=== PATIENT | male | born 1930 | race Caucasian/White ===

== ENCOUNTER 2016-08-12 19:06 | Inpatient (IN) | payer MEDICARE, BC ==
[2016-08-12 20:06] LABS: ALANINE AMINOTRANSFERASE 28 U/L (21-72); ALKALINE PHOSPHATASE 179 U/L (38-126); ANION GAP 14 (5-19); ASPARTATE AMINO TRANSFERASE 21 U/L (17-59); BILIRUBIN,TOTAL 0.8 mg/dL (0.2-1.3); BLOOD UREA NITROGEN 29 mg/dL (7-20); CALCIUM 9.9 mg/dL (8.4-10.2); CARBON DIOXIDE 21 mmol/L (22-30); CHLORIDE 104 mmol/L (98-107); CREATININE RESULT 1.66 mg/dL (0.52-1.25); GLUCOSE 148 mg/dL (75-110); POTASSIUM 5.1 mmol/L (3.6-5.0); SODIUM 139.2 mmol/L (137-145); TOTAL PROTEIN 7.6 g/dL (6.3-8.2)
[2016-08-12 20:29] LABS: HEMATOCRIT 47.2 % (37.9-51.0); HEMOGLOBIN 15.3 g/dL (13.5-17.0); HGB HCT DIFFERENCE -1.3; MEAN CORPUSCULAR HEMOGLOBIN 28.2 pg (27.0-33.4); MEAN CORPUSCULAR HGB CONC 32.4 g/dL (32.0-36.0); MEAN CORPUSCULAR VOLUME 87 fl (80-97); RED BLOOD COUNT 5.42 10^6/uL (4.35-5.55); RED CELL DISTRIBUTION WIDTH 15.4 % (11.5-14.0); WHITE BLOOD COUNT 16.9 10^3/uL (4.0-10.5)
[2016-08-12 20:44] LABS: BAND NEUTROPHILS % (MANUAL) 6 % (3-5); BASOPHILS % (MANUAL) 0 % (0-2); EOSINOPHILS % (MANUAL) 1 % (0-6); LYMPHOCYTES % (MANUAL) 2 % (13-45); TOTAL CELLS COUNTED 100
[2016-08-12 20:45] LABS: ANISOCYTOSIS SLIGHT; OVALOCYTES SLIGHT; POIKILOCYTOSIS SLIGHT
[2016-08-12] MEDS ORDERED: NORMAL SALINE 1000 ML 500 ML IV ONE (22:23)
--- NOTE | 2016-08-12 22:28 | ER Document Report ---
ED General - General Chief Complaint: Nausea/Vomiting/Diarrhea Stated Complaint: VOMITING Mode of Arrival: Medic Information source: Relative Cannot obtain history due to: Dementia Notes: This is an 86-year-old male with a history of end-stage Alzheimer's dementia who is cared for by his son at home. Patient presents with multiple episodes of nausea vomiting and diarrhea since about noon today. Patient has been unable to tolerate by mouth. No fevers noted. No known sick contacts and no recent travel. TRAVEL OUTSIDE OF THE [place] IN LAST 30 DAYS: No - Related Data Allergies/Adverse Reactions: No Known Allergies Allergy (Verified 06/21/15 17:41) Past Medical History - General Information source: Relative Cannot obtain history due to: Dementia - Social History Smoking Status: Never Smoker Family History: Reviewed & Not Pertinent - Past Medical History Cardiac Medical History: Reports: Hx Hypercholesterolemia, Hx Hypertension Endocrine Medical History: Reports: Hx Hypothyroidism Musculoskeltal Medical History: Reports Hx Arthritis Psychiatric Medical History: Reports: Hx Dementia - Alzheimer's Past Surgical History: Reports: Hx Orthopedic Surgery - Shoulder - Immunizations Hx Diphtheria, Pertussis, Tetanus Vaccination: No Hx Pneumococcal Vaccination: 09/09/12 Physical Exam - Vital signs Vitals: Resp 15 08/12/16 19:30 Temperature 98.3, pulse 93, respiration 16, blood pressure 104/74 - Notes Notes: PHYSICAL EXAMINATION: GENERAL: Frail elderly male. He is alert to person. He speaks very softly but has no complaints at this time. He is somewhat ill-appearing, but no acute distress HEAD: Atraumatic, normocephalic. EYES: Pupils equal round and reactive to light, extraocular movements intact, sclera anicteric, conjunctiva are normal. ENT: nares patent, oropharynx clear without exudates. mucous membranes tachy NECK: Normal range of motion, supple without lymphadenopathy LUNGS: Breath sounds clear to auscultation bilaterally and equal anteriorly. No wheezes rales or rhonchi. HEART: Regular rate and rhythm without murmurs ABDOMEN: Soft, nontender, normoactive bowel sounds. No guarding, no rebound. No masses appreciated. EXTREMITIES: No edema NEUROLOGICAL: Baseline dementia. Alert to person. no gross focal motor or sensory deficits Course - Vital Signs Vital signs: Temp Pulse Resp BP Pulse Ox 98.3 F 87 15 100/65 96 08/12/16 20:03 08/12/16 20:03 08/13/16 00:01 08/13/16 00:00 08/12/16 23:01 - Laboratory Result Diagrams: 08/12/16 20:17 08/12/16 19:41 Laboratory results interpreted by me: 08/12/16 08/12/16 08/12/16 19:41 20:17 23:00 WBC 16.9 H RDW 15.4 H Seg Neuts % (Manual) 87 H Band Neutrophils % 6 H Lymphocytes % (Manual) 2 L Monocytes % (Manual) 2 L Abs Neuts (Manual) 15.7 H Potassium 5.1 H Carbon Dioxide 21 L BUN 29 H Creatinine 1.66 H Est GFR ( Amer) 48 L Est GFR (Non-Af Amer) 39 L Glucose 148 H Alkaline Phosphatase 179 H Ur Leukocyte Esterase TRACE H Urine Ascorbic Acid 40 H Discharge - Discharge Clinical Impression: Nausea, vomiting, and diarrhea Leukocytosis Qualifiers: Leukocytosis type: unspecified Qualified Code(s): D72.829 - Elevated white blood cell count, unspecified Disposition: ADMITTED INPATIENT Admitting Provider: [facility] Unit Admitted: Medical Floor
[2016-08-12 23:50] LABS: APPEARANCE,URINE SLIGHTLY-CLOUDY; BILIRUBIN,URINE NEGATIVE (NEGATIVE); GLUCOSE, URINE NEGATIVE (NEGATIVE); KETONES,URINE NEGATIVE (NEGATIVE); LEUKOCYTE ESTERASE,URINE TRACE (NEGATIVE); NITRITE,URINE NEGATIVE (NEGATIVE); PROTEIN,URINE NEGATIVE (NEGATIVE); URINE SPECIFIC GRAVITY 1.012; UROBILINOGEN,URINE NEGATIVE mg/dL (<2.0)
[2016-08-13] MEDS ORDERED: CIPROFLOXACIN 400 MG/D5W RTU 200 ML IV ONE (00:32)
[2016-08-13] MEDS ORDERED: METRONIDAZOLE 500 MG/NS RTU 100 ML IV ONE (00:33)
[2016-08-13] MEDS ORDERED: NORMAL SALINE 1000 ML 500 ML IV ONE (01:16)
[2016-08-13] MEDS: NORMAL SALINE 1000 ML 1,000 ML IV PRN (06:28)
[2016-08-13] MEDS: METRONIDAZOLE 500 MG/NS RTU 100 ML IV SCH ×3 (08:43→20:40)
[2016-08-13] MEDS: CIPROFLOXACIN 200 MG/D5W RTU 100 ML IV SCH ×2 (10:00→21:44)
--- NOTE | 2016-08-13 12:44 | PDOC H&P ---
History of Present Illness Admission Date/PCP: 08/13/16 05:48 Patient complains of: Nausea, Vomiting, and Diarrhea History of Present Illness: MELYSSA KAISER JR is a 86 year old male brought to the ED by medic with cc about nausea, vomiting and diarrhea reported by son due to patient profound dementia. Family reported associated poor po intake. No noted fever or chills.. No reported difficulty with breathing or observed chest pain. No voiding issue with regard to urination. No person with similar symptoms at home or recent exposure or travel. Past Medical History Cardiac Medical History: Reports: Hyperlipidema, Hypertension Endocrine Medical History: Reports: Hypothyroidism Musculoskeltal Medical History: Reports: Arthritis Psychiatric Medical History: Reports: Dementia - Alzheimer's Past Surgical History Past Surgical History: Reports: Orthopedic Surgery - Shoulder Social History Smoking Status: Unknown if Ever Smoked Frequency of Alcohol Use: None Hx Recreational Drug Use: No Hx Prescription Drug Abuse: No - Advance Directive Resuscitation Status: Full Code Family History Family History: Reviewed & Not Pertinent Parental Family History Reviewed: Yes Children Family History Reviewed: Yes Sibling(s) Family History Reviewed.: Yes Medication/Allergy Home Medications: Ascorbic Acid [Vitamin C 500 mg Tablet] 500 mg PO DAILY 08/13/16 Aspirin [Aspirin 81 mg Chewable Tablet] 81 mg PO DAILY 08/13/16 Cyanocobalamin (Vitamin B-12) [Vitamin B-12 1000 mcg Tablet] 1,000 mg PO DAILY 08/13/16 Diclofenac Sodium [Voltaren] 2 gm TOP QID 08/13/16 Ferrous Sulfate [Feosol 325 mg Tablet] 325 mg PO DAILY 08/13/16 Levothyroxine Sodium [Synthroid 0.075 mg Tablet] 0.075 mg PO DAILY 08/13/16 Memantine HCl [Namenda Xr] 28 mg PO DAILY 08/13/16 Mupirocin 1 applic TOP TID 08/13/16 Polyethylene Glycol 3350 [Miralax Powder 17 gm/Packet] 17 gm PO DAILY 08/13/16 Pravastatin Sodium [Pravachol] 20 mg PO QHS 08/13/16 Rivastigmine Tartrate [Rivastigmine] 4.5 mg PO BID 08/13/16 Tamsulosin HCl [Flomax 0.4 mg Cap.sr] 0.4 mg PO DAILY 08/13/16 Allergies/Adverse Reactions: No Known Allergies Allergy (Verified 12/30/15 17:41) Review of Systems ROS unobtainable: Due to mental status All systems: reviewed and no additional remarkable complaints except as stated Physical Exam Vital Signs: Temp Pulse Resp BP Pulse Ox 98.2 F 78 20 116/71 99 08/13/16 08:19 08/13/16 08:19 08/13/16 08:19 08/13/16 08:19 08/13/16 08:19 Intake & Output 08/12/16 08/13/16 08/14/16 06:59 06:59 06:59 Intake Total 0 Output Total 0 Balance 0 General appearance: PRESENT: no acute distress, cooperative Head exam: PRESENT: atraumatic, normocephalic Eye exam: PRESENT: conjunctiva pink, EOMI, PERRLA. ABSENT: scleral icterus Ear exam: PRESENT: normal external ear exam Neck exam: PRESENT: full ROM. ABSENT: carotid bruit, JVD, lymphadenopathy, thyromegaly Respiratory exam: PRESENT: accessory muscle use, chest wall tenderness, clear to auscultation scar, crackles, decreased breath sounds, prolonged expiratory phas, rales, retraction, rhonchi, stridor, symmetrical, tachypnea, unlabored, wheezes, other Cardiovascular exam: PRESENT: RRR. ABSENT: diastolic murmur, rubs, systolic murmur Extremities exam: PRESENT: full ROM Musculoskeletal exam: PRESENT: deformity - due to joint involvement by arthritis Neurological exam: PRESENT: altered - due to dementia Psychiatric exam: PRESENT: appropriate affect, normal mood. ABSENT: homicidal ideation, suicidal ideation Skin exam: PRESENT: erythema - around left heel region, rash - resolving ecchymotic lesion on upper extremities, warm Results Laboratory Results: see [employer] for information. These were reviewed and form part of my clinical decision making. Impressions: Abdomen/Pelvis CT 08/12/16 22:26 IMPRESSION: 1. GALLSTONES. 2. PROMINENT STOOL IN THE RECTOSIGMOID. POSSIBLE FECAL IMPACTION. 3. NO OTHER SIGNIFICANT OR ACUTE PROCESS IN THE ABDOMEN OR PELVIS. Assessment & Plan - Diagnosis (1) Senile dementia of Alzheimer's type Is this a current diagnosis for this admission?: YesPlan: See admitting physician order. (2) Fecal impaction in rectum Is this a current diagnosis for this admission?: YesPlan: See admitting physician order. (3) Nausea, vomiting, and diarrhea Is this a current diagnosis for this admission?: YesPlan: See admitting physician order. (4) Hypothyroid Qualifiers: Hypothyroidism type: acquired Qualified Code(s): E03.9 - Hypothyroidism, unspecified Is this a current diagnosis for this admission?: YesPlan: See admitting physician order. (5) Cholelithiasis Qualifiers: Cholelithiasis location: gallbladder Cholecystitis acuity: chronic Biliary obstruction: without biliary obstruction Is this a current diagnosis for this admission?: YesPlan: See admitting physician order. (6) HLD (hyperlipidemia) Is this a current diagnosis for this admission?: YesPlan: See admitting physician order. - Time Time Spent: 50 to 70 Minutes Medications reviewed and adjusted accordingly: Yes Anticipated discharge: Home with Homehealth - Inpatient Certification Medical Necessity: Need For IV Fluids, Need for IV Antibiotics, Risk of Complication if Not Cared For in Hospital Post Hospital Care: D/C [employer] Documentation - Plan Summary Plan Summary: See admitting physician order.
[2016-08-13] MEDS: MUPIROCIN 2% OINTMENT 22 GM TOP SCH ×2 (14:06→17:13)
[2016-08-13] MEDS: RIVASTIGMINE TARTRATE 1.5 MG CAPSULE PO SCH (17:13)
[2016-08-13] MEDS ORDERED: RIVASTIGMINE TARTRATE 4.5 MG PO SCH (18:00)
[2016-08-13] MEDS: ATORVASTATIN CALCIUM 10 MG TABLET PO SCH (21:44)
[2016-08-14] MEDS: METRONIDAZOLE 500 MG/NS RTU 100 ML IV SCH ×4 (03:52→22:34)
--- NOTE | 2016-08-14 08:12 | PDOC PROGRESS REPORT ---
Subjective Progress Note for:: 08/14/16 Subjective:: At baseline advance dementia not able to meaningfully contribute to his medical care. Nursing staff denied any observed difficulty with breathing. No reported fever or chills. Remain on soft diet with nectar thicken fluid. Remain on Metronidazole and Ciprofloxacin coverage. Physical Exam Vital Signs: Temp Pulse Resp BP Pulse Ox 98.4 F 76 18 129/71 H 100 08/13/16 23:59 08/13/16 23:59 08/13/16 23:59 08/13/16 23:59 08/13/16 23:59 Intake & Output 08/13/16 08/14/16 08/15/16 06:59 06:59 06:59 Intake Total 0 2675 Output Total 0 Balance 0 2675 General appearance: PRESENT: no acute distress, cooperative Head exam: PRESENT: atraumatic, normocephalic Eye exam: PRESENT: conjunctiva pink, EOMI, PERRLA. ABSENT: scleral icterus Neck exam: PRESENT: full ROM. ABSENT: carotid bruit, JVD, lymphadenopathy, thyromegaly Respiratory exam: ABSENT: accessory muscle use, chest wall tenderness, clear to auscultation scar, crackles, decreased breath sounds, prolonged expiratory phas, rales, retraction, rhonchi, stridor, symmetrical, tachypnea, unlabored, wheezes , other Cardiovascular exam: PRESENT: RRR. ABSENT: diastolic murmur, rubs, systolic murmur GI/Abdominal exam: ABSENT: ascites, diminished bowel sounds, distended, firm, guarding, hernia, hyperactive bowel sounds, hypoactive bowel sounds, mass, Charles's sign, normal bowel sounds, organolmegaly, rebound, rigid, soft, tenderness, other Extremities exam: PRESENT: full ROM Musculoskeletal exam: PRESENT: deformity - due to joint involvement with arthritis Neurological exam: PRESENT: altered - due to dementia Skin exam: PRESENT: dry, intact, warm. ABSENT: cyanosis, rash Results Laboratory Results: Pending for this morning. See [employer] for more information. Impressions: Abdomen/Pelvis CT 08/12/16 22:26 IMPRESSION: 1. GALLSTONES. 2. PROMINENT STOOL IN THE RECTOSIGMOID. POSSIBLE FECAL IMPACTION. 3. NO OTHER SIGNIFICANT OR ACUTE PROCESS IN THE ABDOMEN OR PELVIS. Assessment & Plan - Diagnosis (1) Senile dementia of Alzheimer's type Is this a current diagnosis for this admission?: YesPlan: See attending physician order. (2) Fecal impaction in rectum Is this a current diagnosis for this admission?: YesPlan: See attending physician order. (3) Nausea, vomiting, and diarrhea Is this a current diagnosis for this admission?: YesPlan: See attending physician orders. (4) Hypothyroid Qualifiers: Hypothyroidism type: acquired Qualified Code(s): E03.9 - Hypothyroidism, unspecified Is this a current diagnosis for this admission?: YesPlan: See attending physician order. (5) Cholelithiasis Qualifiers: Cholelithiasis location: gallbladder Cholecystitis acuity: chronic Biliary obstruction: without biliary obstruction Is this a current diagnosis for this admission?: YesPlan: See attending physician order. (6) HLD (hyperlipidemia) Is this a current diagnosis for this admission?: YesPlan: See attending physician order. - Time Time Spent with patient: 25-34 minutes Medications reviewed and adjusted accordingly: Yes Anticipated discharge: Home with Homehealth - Inpatient Certification Medical Necessity: Need For IV Fluids, Need for IV Antibiotics, Risk of Complication if Not Cared For in Hospital Post Hospital Care: D/C [employer] Documentation - Plan Summary Plan Summary: See attending physician orders.
[2016-08-14] MEDS: CIPROFLOXACIN 200 MG/D5W RTU 100 ML IV SCH ×2 (09:47→22:34)
[2016-08-14] MEDS: ASPIRIN 81 MG TABLET, CHEWABLE PO SCH (09:47)
[2016-08-14] MEDS: TAMSULOSIN HCL 0.4 MG CAP.SR.24H PO SCH (09:48)
[2016-08-14] MEDS: POLYETHYLENE GLYCOL 3350 POWDER 17 GM/1 PACKET PO SCH (09:48)
[2016-08-14] MEDS: RIVASTIGMINE TARTRATE 1.5 MG CAPSULE PO SCH ×2 (09:48→18:23)
[2016-08-14] MEDS: MUPIROCIN 2% OINTMENT 22 GM TOP SCH ×3 (09:48→18:24)
[2016-08-14] MEDS: CYANOCOBALAMIN (VITAMIN B-12) 1,000 MCG TABLET PO SCH (09:49)
[2016-08-14] MEDS ORDERED: (PENDING PHARMACY ID) (Memantine Hcl [Namenda Xr] 28 MG) PO SCH (10:00)
[2016-08-14] MEDS ORDERED: CYANOCOBALAMIN (VITAMIN B-12) 1,000 MCG TABLET PO SCH (10:00)
[2016-08-14 10:58] LABS: ABSOLUTE EOSINOPHILS # (AUTO) 0.1 10^3/uL (0.0-0.6); ABSOLUTE LYMPHOCYTES (AUTO) 1.4 10^3/uL (0.5-4.7); ABSOLUTE MONOCYTES (AUTO) 1.2 10^3/uL (0.1-1.4); BASOPHILS % (AUTO) 0.4 % (0-2); EOSINOPHILS % (AUTO) 1.3 % (0-6); HEMATOCRIT 34.2 % (37.9-51.0); MEAN CORPUSCULAR HEMOGLOBIN 28.5 pg (27.0-33.4); MEAN CORPUSCULAR HGB CONC 33.3 g/dL (32.0-36.0); MEAN CORPUSCULAR VOLUME 86 fl (80-97); RED CELL DISTRIBUTION WIDTH 15.4 % (11.5-14.0); SEGMENTED NEUTROPHILS % (AUTO) 72.3 % (42-78); WHITE BLOOD COUNT 9.6 10^3/uL (4.0-10.5)
[2016-08-14 11:05] LABS: HEMOGLOBIN 11.4 g/dL (13.5-17.0)
[2016-08-14] MEDS: NORMAL SALINE 1000 ML 1,000 ML IV PRN (11:09)
[2016-08-14 11:14] LABS: ANION GAP 10 (5-19); BLOOD UREA NITROGEN 52 mg/dL (7-20); CALCIUM 8.9 mg/dL (8.4-10.2); CARBON DIOXIDE 20 mmol/L (22-30); CHLORIDE 111 mmol/L (98-107); CREATININE RESULT 1.65 mg/dL (0.52-1.25); GLUCOSE 108 mg/dL (75-110); POTASSIUM 4.3 mmol/L (3.6-5.0); SODIUM 140.9 mmol/L (137-145)
--- NOTE | 2016-08-14 13:07 | ST Inp Modified Barium Swallow ---
Medical Diagnosis - Medical Diagnoses Medical Diagnosis Description & ICD-10 Code(s): dysphagia ST Inpatient [facility] [place] - General Date: 08/14/16 - per EMR; pt significant for; nausea, vomiting, diarrhea, leukocytosis. Abdonimal/pelvis CT shows gallstones, prominent stool possible fecal impaction. Pt currently NPO for concerns for swallowing. PMHx: end stage dementia-alzheimers, cared for by pts son, hypercholesterolemia, HTN, hypothyroidism, arthritis. - History History Obtained From: Other Medications: Medications Reviewed - Subjective Current Nutritional Means: NPO Current PO Diet: N/A (NPO) Current Symptoms: Coughing Pain: denies pain - Objective Assessment: Left Lateral - Food Trials Food Trials Used: Thin liquids, Honey-thickened liquids, Pureed, Soft solids The Patient: fed by caregiver, via cup, via spoon - Assessment Labial Function: Within Normal Limits Dentition: Edentulous Laryngeal Function: Volitional Swallow, no volitional cough/clear - Pharyngeal Stage Initiation of Pharyngeal Stage: Delayed Reflex Delay Time (seconds): 4 Reduced Tongue Base Retraction: Yes Pre-Swallowing Pooling in Valleculae: Moderate Multiple Swallows With: Cleared w/ Liquid Assist Post Swallow Residuals in Valleculae: Moderate Post Swallow Residuals in Pyriforms: None Pahryngeal Stage Comments: Patient demonstrated consistently delayed swallow reflex (4 seconds). For thin liquid trial, the patient demonstrated aspiration of small sip, immediate cough reflex noted. For honey thick liquids, the patient demonstrated safe swallow with valleculae residue, cleared with second swallow. For puree trial, pooling in valleculae seen prior to swallow, and residue seen post swallow. Sip of thickened liquid reduced residue in valleculae. Attempted soft solids (peaches), pt unable to swallow, therapist removed from oral cavity with spoon. Some floor of mouth residue also seen post swallow on puree texture. - Impression/Summary Tracheal Aspiration: yes, cough, after swallow Productive Cough: No Effective Clearing: no Compensatory Strategies: Unable to follow directions for strategies. Patient Presents With: Oral-Pharyngeal dysph. Risk of Aspiration: Moderate Risk of Nutritional Compromise: Moderate Risk Due To: aspiration of thin liquid, inability to handle solids other than puree - Recommendations Solid Diet Recommendations: Pureed Liquid Diet Recommendations: [place]-Thick - May change to honey thick should coughing be noted on nectar liquids. Strict Aspitarion Precautions: Yes Dysphagia Therapy with ORIENTATION AND MOBILITY INSTRUCTOR: Follow Up PRN Recommended Techniques: Check Mouth for Pocketing, Alternate Bites/Sips Supervision: Constant - Time Total Time: 30 Total Timed Minutes: 30
[2016-08-14] MEDS: ATORVASTATIN CALCIUM 10 MG TABLET PO SCH (22:34)
[2016-08-15] MEDS: METRONIDAZOLE 500 MG/NS RTU 100 ML IV SCH ×4 (03:56→21:40)
--- NOTE | 2016-08-15 08:26 | PDOC PROGRESS REPORT ---
Subjective Progress Note for:: 08/15/16 Subjective:: No observed chest pain or difficulty with breathing. No reported fever or chills. Remain on puree diet with nectar thicken fluid as per ST recommendation following swallowing evaluation. Remain on IV Metronidazole and Ciprofloxacin coverage. Blood culture is growing gram positive cocci, organism identification and sensitivity pending. Physical Exam Vital Signs: Temp Pulse Resp BP Pulse Ox 98.5 F 65 17 134/60 H 100 08/14/16 23:16 08/14/16 23:16 08/14/16 23:16 08/14/16 23:16 08/14/16 23:16 Intake & Output 08/14/16 08/15/16 08/16/16 06:59 06:59 06:59 Intake Total 2675 1637 Output Total 3 Balance 2675 1634 Weight 92.4 kg Physical Exam: General appearance: PRESENT: no acute distress, cooperative Head exam: PRESENT: atraumatic, normocephalic Eye exam: PRESENT: conjunctiva pink, EOMI, PERRLA. ABSENT: scleral icterus Neck exam: PRESENT: full ROM. ABSENT: carotid bruit, JVD, lymphadenopathy, thyromegaly Respiratory exam: ABSENT: accessory muscle use, chest wall tenderness, clear to auscultation scar, crackles, decreased breath sounds, prolonged expiratory phase , rales, retraction, rhonchi, stridor, symmetrical, tachypnea, unlabored, wheezes, other Cardiovascular exam: PRESENT: RRR. ABSENT: diastolic murmur, rubs, systolic murmur GI/Abdominal exam: ABSENT: ascites, diminished bowel sounds, distended, firm, guarding, hernia, hyperactive bowel sounds, hypoactive bowel sounds, mass, Charles's sign, normal bowel sounds, organolmegaly, rebound, rigid, soft, tenderness, other Extremities exam: PRESENT: full ROM Musculoskeletal exam: PRESENT: deformity - due to joint involvement with arthritis Neurological exam: PRESENT: altered - due to dementia Skin exam: PRESENT: dry, intact, warm. ABSENT: cyanosis, rash Results Laboratory Results: 08/14/16 09:34 08/14/16 09:34 08/14/16 08/14/16 09:34 09:34 WBC 9.6 RBC 4.00 L Hgb 11.4 L D Hct 34.2 L MCV 86 MCH 28.5 MCHC 33.3 RDW 15.4 H Plt Count 299 Seg Neutrophils % 72.3 Lymphocytes % 14.0 Monocytes % 12.0 Eosinophils % 1.3 Basophils % 0.4 Absolute Neutrophils 7.0 Absolute Lymphocytes 1.4 Absolute Monocytes 1.2 Absolute Eosinophils 0.1 Absolute Basophils 0.0 Sodium 140.9 Potassium 4.3 Chloride 111 H Carbon Dioxide 20 L Anion Gap 10 BUN 52 H Creatinine 1.65 H Est GFR ( Amer) 48 L Est GFR (Non-Af Amer) 40 L Glucose 108 Calcium 8.9 08/13/16 15:42 Nasophary (Mrsa Only) MRSA Surveillance Culture - Final NO MRSA RECOVERED Impressions: Abdomen/Pelvis CT 08/12/16 22:26 IMPRESSION: 1. GALLSTONES. 2. PROMINENT STOOL IN THE RECTOSIGMOID. POSSIBLE FECAL IMPACTION. 3. NO OTHER SIGNIFICANT OR ACUTE PROCESS IN THE ABDOMEN OR PELVIS. Assessment & Plan - Diagnosis (1) Senile dementia of Alzheimer's type Is this a current diagnosis for this admission?: YesPlan: See attending physician order. (2) Fecal impaction in rectum Is this a current diagnosis for this admission?: YesPlan: See attending physician order. (3) Nausea, vomiting, and diarrhea Is this a current diagnosis for this admission?: YesPlan: See attending physician orders. (4) Hypothyroid Qualifiers: Hypothyroidism type: acquired Qualified Code(s): E03.9 - Hypothyroidism, unspecified Is this a current diagnosis for this admission?: YesPlan: See attending physician order. (5) Cholelithiasis Qualifiers: Cholelithiasis location: gallbladder Cholecystitis acuity: chronic Biliary obstruction: without biliary obstruction Is this a current diagnosis for this admission?: YesPlan: See attending physician order. (6) HLD (hyperlipidemia) Is this a current diagnosis for this admission?: YesPlan: See attending physician order. - Time Time Spent with patient: 25-34 minutes Medications reviewed and adjusted accordingly: Yes Anticipated discharge: Home with Homehealth - Inpatient Certification Medical Necessity: Need For IV Fluids, Need for IV Antibiotics, Risk of Complication if Not Cared For in Hospital Post Hospital Care: D/C [employer] Documentation - Plan Summary Plan Summary: see attending physician orders
[2016-08-15] MEDS: CYANOCOBALAMIN (VITAMIN B-12) 1,000 MCG TABLET PO SCH (09:13)
[2016-08-15] MEDS: RIVASTIGMINE TARTRATE 1.5 MG CAPSULE PO SCH ×2 (09:13→17:08)
[2016-08-15] MEDS: TAMSULOSIN HCL 0.4 MG CAP.SR.24H PO SCH (09:13)
[2016-08-15] MEDS: ASPIRIN 81 MG TABLET, CHEWABLE PO SCH (09:13)
[2016-08-15] MEDS: POLYETHYLENE GLYCOL 3350 POWDER 17 GM/1 PACKET PO SCH (09:13)
[2016-08-15] MEDS: CIPROFLOXACIN 200 MG/D5W RTU 100 ML IV SCH ×2 (09:13→21:40)
[2016-08-15] MEDS: MUPIROCIN 2% OINTMENT 22 GM TOP SCH ×3 (09:14→17:08)
[2016-08-15] MEDS: ATORVASTATIN CALCIUM 10 MG TABLET PO SCH (21:40)
[2016-08-16] MEDS: METRONIDAZOLE 500 MG/NS RTU 100 ML IV SCH ×2 (03:30→08:25)
[2016-08-16] MEDS: CIPROFLOXACIN 200 MG/D5W RTU 100 ML IV SCH (10:43)
[2016-08-16] MEDS: CYANOCOBALAMIN (VITAMIN B-12) 1,000 MCG TABLET PO SCH (10:47)
[2016-08-16] MEDS: RIVASTIGMINE TARTRATE 1.5 MG CAPSULE PO SCH ×2 (10:47→18:16)
[2016-08-16] MEDS: ASPIRIN 81 MG TABLET, CHEWABLE PO SCH (10:48)
[2016-08-16] MEDS: TAMSULOSIN HCL 0.4 MG CAP.SR.24H PO SCH (10:48)
[2016-08-16] MEDS: POLYETHYLENE GLYCOL 3350 POWDER 17 GM/1 PACKET PO SCH (10:48)
[2016-08-16] MEDS: MUPIROCIN 2% OINTMENT 22 GM TOP SCH ×3 (10:49→18:15)
--- NOTE | 2016-08-16 14:28 | PDOC PROGRESS REPORT ---
Subjective Progress Note for:: 08/16/16 Subjective:: No observed chest pain or difficulty with breathing. No reported fever or chills. No reported nausea or vomiting. Tolerating puree diet with nectar thicken fluid. His blood culture did revealed Enterococus faecalis. Remain on IV Metronidazole and Ciprofloxacin coverage. Physical Exam Vital Signs: Temp Pulse Resp BP Pulse Ox 98.1 F 77 22 H 142/79 H 98 08/16/16 11:42 08/16/16 11:42 08/16/16 11:42 08/16/16 11:42 08/16/16 11:42 Intake & Output 08/15/16 08/16/16 08/17/16 06:59 06:59 06:59 Intake Total 1637 1428 Output Total 3 Balance 1634 1428 Weight 92.4 kg 93.8 kg Physical Exam: General appearance: PRESENT: no acute distress, cooperative Head exam: PRESENT: atraumatic, normocephalic Eye exam: PRESENT: conjunctiva pink, EOMI, PERRLA. ABSENT: scleral icterus Neck exam: PRESENT: full ROM. ABSENT: carotid bruit, JVD, lymphadenopathy, thyromegaly Respiratory exam: ABSENT: accessory muscle use, chest wall tenderness, clear to auscultation scar, crackles, decreased breath sounds, prolonged expiratory phase , rales, retraction, rhonchi, stridor, symmetrical, tachypnea, unlabored, wheezes, other Cardiovascular exam: PRESENT: RRR. ABSENT: diastolic murmur, rubs, systolic murmur GI/Abdominal exam: ABSENT: ascites, diminished bowel sounds, distended, firm, guarding, hernia, hyperactive bowel sounds, hypoactive bowel sounds, mass, Charles's sign, normal bowel sounds, organolmegaly, rebound, rigid, soft, tenderness, other Extremities exam: PRESENT: full ROM Musculoskeletal exam: PRESENT: deformity - due to joint involvement with arthritis Neurological exam: PRESENT: altered - due to dementia Skin exam: PRESENT: dry, intact, warm. ABSENT: cyanosis, rash Results Laboratory Results: 08/14/16 09:34 08/14/16 09:34 Impressions: Abdomen/Pelvis CT 08/12/16 22:26 IMPRESSION: 1. GALLSTONES. 2. PROMINENT STOOL IN THE RECTOSIGMOID. POSSIBLE FECAL IMPACTION. 3. NO OTHER SIGNIFICANT OR ACUTE PROCESS IN THE ABDOMEN OR PELVIS. Assessment & Plan - Diagnosis (1) Senile dementia of Alzheimer's type Is this a current diagnosis for this admission?: YesPlan: See attending physician order. (2) Fecal impaction in rectum Is this a current diagnosis for this admission?: YesPlan: See attending physician order. (3) Nausea, vomiting, and diarrhea Is this a current diagnosis for this admission?: YesPlan: Resolved. See attending physician orders. (4) Hypothyroid Qualifiers: Hypothyroidism type: acquired Qualified Code(s): E03.9 - Hypothyroidism, unspecified Is this a current diagnosis for this admission?: YesPlan: See attending physician order. (5) Cholelithiasis Qualifiers: Cholelithiasis location: gallbladder Cholecystitis acuity: chronic Biliary obstruction: without biliary obstruction Is this a current diagnosis for this admission?: YesPlan: See attending physician order. (6) HLD (hyperlipidemia) Is this a current diagnosis for this admission?: YesPlan: See attending physician order. (7) Enterococcus faecalis infection Is this a current diagnosis for this admission?: YesPlan: D/C IV Ciprofloxacin and Metronidazole. Start on IV Unasyn 1.5gm [id number] coverage. Obtain CBC with diff in AM. - Time Time Spent with patient: 25-34 minutes Medications reviewed and adjusted accordingly: Yes Anticipated discharge: Home with Homehealth - Inpatient Certification Medical Necessity: Need Close Monitoring Due to Risk of Patient Decompensation, Need For IV Fluids, Need for IV Antibiotics, Risk of Complication if Not Cared For in Hospital Post Hospital Care: D/C [employer]ner Documentation - Plan Summary Plan Summary: See attending physician orders.
[2016-08-16] MEDS: AMPICILLIN SODIUM/SULBACTAM NA 1.5 GM in NORMAL SALINE 50 ML IV SCH (18:15)
[2016-08-16] MEDS: ATORVASTATIN CALCIUM 10 MG TABLET PO SCH (22:31)
[2016-08-16] MEDS: NORMAL SALINE 1000 ML 1,000 ML IV PRN (22:31)
[2016-08-17] MEDS: AMPICILLIN SODIUM/SULBACTAM NA 1.5 GM in NORMAL SALINE 50 ML IV SCH ×4 (00:08→19:06)
--- NOTE | 2016-08-17 10:04 | PDOC PROGRESS REPORT ---
Subjective Progress Note for:: 08/17/16 Subjective:: Patient is doing fair patient is a bit sleepy during the day times. No fever no nausea no vomiting in the by mouth intake is fair. Patient CT abdomen and pelvis reveal assistance for some gallstone but no any acute cholecystitis. His cussed with the family in the room Physical Exam Vital Signs: Temp Pulse Resp BP Pulse Ox 98.2 F 68 22 H 121/50 L 98 08/17/16 08:00 08/17/16 08:00 08/17/16 08:00 08/17/16 08:00 08/17/16 08:00 Intake & Output 08/16/16 08/17/16 08/18/16 06:59 06:59 06:59 Intake Total 1428 1560 Balance 1428 1560 Weight 93.8 kg Physical Exam: She is currently lying in the bed sleeping but no any acute distress General appearance: PRESENT: no acute distress, other Head exam: PRESENT: normocephalic Eye exam: PRESENT: PERRLA Respiratory exam: PRESENT: clear to auscultation scar Cardiovascular exam: PRESENT: +S1, +S2 GI/Abdominal exam: PRESENT: normal bowel sounds, soft. ABSENT: tenderness Extremities exam: PRESENT: pedal edema Neurological exam: PRESENT: altered, other Additional comments: Patient is currently sleepy but present significant underlying dementia Results Laboratory Results: 08/14/16 09:34 08/14/16 09:34 Impressions: Abdomen/Pelvis CT 08/12/16 22:26 IMPRESSION: 1. GALLSTONES. 2. PROMINENT STOOL IN THE RECTOSIGMOID. POSSIBLE FECAL IMPACTION. 3. NO OTHER SIGNIFICANT OR ACUTE PROCESS IN THE ABDOMEN OR PELVIS. Modified Barium Swallow 08/14/16 00:00 IMPRESSION: LARYNGEAL PENETRATION AND TRACHEAL ASPIRATION WITH THIN LIQUIDS. PLEASE SEE SPEECH PATHOLOGY REPORT FOR FURTHER DETAILS AND RECOMMENDATIONS. Assessment & Plan - Diagnosis (1) Cholelithiasis Qualifiers: Cholelithiasis location: gallbladder Cholecystitis acuity: chronic Biliary obstruction: without biliary obstruction Is this a current diagnosis for this admission?: YesPlan: Currently stable no sign of any acute cholecystitis (2) Enterococcus faecalis infection Is this a current diagnosis for this admission?: YesPlan: Continues IV antibiotic (3) Fecal impaction in rectum Is this a current diagnosis for this admission?: YesPlan: Continues a stool softener (4) Nausea, vomiting, and diarrhea Is this a current diagnosis for this admission?: YesPlan: All resolving (5) Senile dementia of Alzheimer's type Is this a current diagnosis for this admission?: YesPlan: Continues to Namenda (6) Altered mental state Qualifiers: Altered mental status type: transient alteration of awareness Qualified Code(s): R40.4 - Transient alteration of awareness Is this a current diagnosis for this admission?: YesPlan: Currently stable status with a significant underlying dementia - Time Time Spent with patient: 15-24 minutes Medications reviewed and adjusted accordingly: Yes Anticipated discharge: Other - Inpatient Certification Medical Necessity: Need for IV Antibiotics Post Hospital Care: D/C Vice President Of Procurement Documentation - Plan Summary Plan Summary: Discussed with the family in the room continuous IV antibiotics
[2016-08-17] MEDS: TAMSULOSIN HCL 0.4 MG CAP.SR.24H PO SCH (10:55)
[2016-08-17] MEDS: CYANOCOBALAMIN (VITAMIN B-12) 1,000 MCG TABLET PO SCH (10:55)
[2016-08-17] MEDS: MUPIROCIN 2% OINTMENT 22 GM TOP SCH ×3 (10:56→19:08)
[2016-08-17] MEDS: ASPIRIN 81 MG TABLET, CHEWABLE PO SCH (10:56)
[2016-08-17] MEDS: POLYETHYLENE GLYCOL 3350 POWDER 17 GM/1 PACKET PO SCH (10:56)
[2016-08-17] MEDS: RIVASTIGMINE TARTRATE 1.5 MG CAPSULE PO SCH ×2 (10:56→19:08)
[2016-08-18] MEDS: NORMAL SALINE 1000 ML 1,000 ML IV PRN ×2 (00:11→22:25)
[2016-08-18] MEDS: ATORVASTATIN CALCIUM 10 MG TABLET PO SCH ×2 (00:11→22:25)
[2016-08-18] MEDS: AMPICILLIN SODIUM/SULBACTAM NA 1.5 GM in NORMAL SALINE 50 ML IV SCH ×4 (00:11→18:11)
[2016-08-18] MEDS: TAMSULOSIN HCL 0.4 MG CAP.SR.24H PO SCH (11:00)
[2016-08-18] MEDS: MUPIROCIN 2% OINTMENT 22 GM TOP SCH ×3 (11:00→18:12)
[2016-08-18] MEDS: CYANOCOBALAMIN (VITAMIN B-12) 1,000 MCG TABLET PO SCH (11:00)
[2016-08-18] MEDS: ASPIRIN 81 MG TABLET, CHEWABLE PO SCH (11:00)
[2016-08-18] MEDS: RIVASTIGMINE TARTRATE 1.5 MG CAPSULE PO SCH ×2 (11:01→18:12)
[2016-08-18] MEDS: POLYETHYLENE GLYCOL 3350 POWDER 17 GM/1 PACKET PO SCH (11:02)
--- NOTE | 2016-08-18 11:11 | PDOC PROGRESS REPORT ---
Subjective Progress Note for:: 08/18/16 Subjective:: Patient is doing fair patient is a bit sleepy during the day times. No fever no nausea no vomiting in the by mouth intake is fair. Patient CT abdomen and pelvis reveal assistance for some gallstone but no any acute cholecystitis. His cussed with the family in the room Physical Exam Vital Signs: Temp Pulse Resp BP Pulse Ox 98.5 F 66 20 120/85 100 08/18/16 07:47 08/18/16 07:47 08/18/16 07:47 08/18/16 07:47 08/18/16 07:47 Intake & Output 08/17/16 08/18/16 08/19/16 06:59 06:59 06:59 Intake Total 1560 1390 Balance 1560 1390 General appearance: PRESENT: no acute distress Head exam: PRESENT: normocephalic Eye exam: PRESENT: PERRLA Mouth exam: PRESENT: neck supple Neck exam: ABSENT: carotid bruit, full ROM, JVD, lymphadenopathy, meningismus, tenderness, thyromegaly, tracheal deviation, tracheostomy, other Respiratory exam: ABSENT: accessory muscle use, chest wall tenderness, clear to auscultation scar, crackles, decreased breath sounds, prolonged expiratory phas, rales, retraction, rhonchi, stridor, symmetrical, tachypnea, unlabored, wheezes , other Cardiovascular exam: PRESENT: +S1, +S2 GI/Abdominal exam: PRESENT: normal bowel sounds, soft. ABSENT: tenderness Extremities exam: ABSENT: pedal edema Neurological exam: PRESENT: alert, altered, awake Results Laboratory Results: 08/14/16 09:34 08/14/16 09:34 Impressions: Abdomen/Pelvis CT 08/12/16 22:26 IMPRESSION: 1. GALLSTONES. 2. PROMINENT STOOL IN THE RECTOSIGMOID. POSSIBLE FECAL IMPACTION. 3. NO OTHER SIGNIFICANT OR ACUTE PROCESS IN THE ABDOMEN OR PELVIS. Modified Barium Swallow 08/14/16 00:00 IMPRESSION: LARYNGEAL PENETRATION AND TRACHEAL ASPIRATION WITH THIN LIQUIDS. PLEASE SEE SPEECH PATHOLOGY REPORT FOR FURTHER DETAILS AND RECOMMENDATIONS. Assessment & Plan - Diagnosis (1) Cholelithiasis Qualifiers: Cholelithiasis location: gallbladder Cholecystitis acuity: chronic Biliary obstruction: without biliary obstruction Is this a current diagnosis for this admission?: YesPlan: Currently stable no sign of any acute cholecystitis (2) Enterococcus faecalis infection Is this a current diagnosis for this admission?: YesPlan: Continues IV antibiotic (3) Fecal impaction in rectum Is this a current diagnosis for this admission?: YesPlan: Continues a stool softener (4) Nausea, vomiting, and diarrhea Is this a current diagnosis for this admission?: YesPlan: All resolving (5) Senile dementia of Alzheimer's type Is this a current diagnosis for this admission?: YesPlan: Continues to Namenda (6) Altered mental state Qualifiers: Altered mental status type: transient alteration of awareness Qualified Code(s): R40.4 - Transient alteration of awareness Is this a current diagnosis for this admission?: Yes - Time Time Spent with patient: 15-24 minutes Medications reviewed and adjusted accordingly: Yes Anticipated discharge: SNF Within: Other - Inpatient Certification Medical Necessity: Significant Comorbidiites Make Outpatient Treatment Too Risky , Need Close Monitoring Due to Risk of Patient Decompensation Post Hospital Care: D/C Scrap Preparer Documentation - Plan Summary Plan Summary: Continues the current medications
[2016-08-19] MEDS: AMPICILLIN SODIUM/SULBACTAM NA 1.5 GM in NORMAL SALINE 50 ML IV SCH ×4 (00:56→18:45)
[2016-08-19 10:00] LABS: ABSOLUTE BASOPHILS # (AUTO) 0.1 10^3/uL (0.0-0.2); ABSOLUTE EOSINOPHILS # (AUTO) 0.2 10^3/uL (0.0-0.6); ABSOLUTE LYMPHOCYTES (AUTO) 1.5 10^3/uL (0.5-4.7); ABSOLUTE MONOCYTES (AUTO) 1.1 10^3/uL (0.1-1.4); ABSOLUTE NEUT (AUTO) 7.7 10^3/uL (1.7-8.2); BASOPHILS % (AUTO) 0.8 % (0-2); EOSINOPHILS % (AUTO) 2.3 % (0-6); LYMPHOCYTES % (AUTO) 14.4 % (13-45); MEAN CORPUSCULAR HEMOGLOBIN 27.9 pg (27.0-33.4); MEAN CORPUSCULAR HGB CONC 32.5 g/dL (32.0-36.0); MEAN CORPUSCULAR VOLUME 86 fl (80-97); MONOCYTES % (AUTO) 9.9 % (3-13); RED BLOOD COUNT 4.31 10^6/uL (4.35-5.55); RED CELL DISTRIBUTION WIDTH 15.4 % (11.5-14.0); SEGMENTED NEUTROPHILS % (AUTO) 72.6 % (42-78); WHITE BLOOD COUNT 10.6 10^3/uL (4.0-10.5)
[2016-08-19 10:17] LABS: ANION GAP 10 (5-19); BLOOD UREA NITROGEN 24 mg/dL (7-20); CARBON DIOXIDE 24 mmol/L (22-30); CHLORIDE 107 mmol/L (98-107); CREATININE RESULT 0.93 mg/dL (0.52-1.25); GLUCOSE 103 mg/dL (75-110); SODIUM 141.4 mmol/L (137-145)
[2016-08-19] MEDS: RIVASTIGMINE TARTRATE 1.5 MG CAPSULE PO SCH (11:22)
[2016-08-19] MEDS: CYANOCOBALAMIN (VITAMIN B-12) 1,000 MCG TABLET PO SCH (11:25)
[2016-08-19] MEDS: ASPIRIN 81 MG TABLET, CHEWABLE PO SCH (11:25)
[2016-08-19] MEDS: TAMSULOSIN HCL 0.4 MG CAP.SR.24H PO SCH (11:26)
[2016-08-19] MEDS: POLYETHYLENE GLYCOL 3350 POWDER 17 GM/1 PACKET PO SCH (11:26)
[2016-08-19] MEDS: MUPIROCIN 2% OINTMENT 22 GM TOP SCH ×3 (11:27→18:45)
--- NOTE | 2016-08-19 12:38 | PDOC PROGRESS REPORT ---
Subjective Progress Note for:: 08/19/16 Subjective:: No observed chest pain or difficulty with breathing. No reported fever or chills. No reported nausea or vomiting. Tolerating puree diet with nectar thicken fluid and feeding assistance. Remain on IV Unasyn coverage leatha Enterococcus Feacalis septicemia management. Physical Exam Vital Signs: Temp Pulse Resp BP Pulse Ox 98.6 F 73 18 155/88 H 100 08/19/16 07:35 08/19/16 07:35 08/19/16 07:35 08/19/16 07:35 08/19/16 07:35 Intake & Output 08/18/16 08/19/16 08/20/16 06:59 06:59 06:59 Intake Total 1390 940 Balance 1390 940 Physical Exam: General appearance: PRESENT: no acute distress, cooperative Head exam: PRESENT: atraumatic, normocephalic Eye exam: PRESENT: conjunctiva pink, EOMI, PERRLA. ABSENT: scleral icterus Neck exam: PRESENT: full ROM. ABSENT: carotid bruit, JVD, lymphadenopathy, thyromegaly Respiratory exam: ABSENT: accessory muscle use, chest wall tenderness, clear to auscultation scar, crackles, decreased breath sounds, prolonged expiratory phase , rales, retraction, rhonchi, stridor, symmetrical, tachypnea, unlabored, wheezes, other Cardiovascular exam: PRESENT: RRR. ABSENT: diastolic murmur, rubs, systolic murmur GI/Abdominal exam: ABSENT: ascites, diminished bowel sounds, distended, firm, guarding, hernia, hyperactive bowel sounds, hypoactive bowel sounds, mass, Charles's sign, normal bowel sounds, organolmegaly, rebound, rigid, soft, tenderness, other Extremities exam: PRESENT: full ROM Musculoskeletal exam: PRESENT: deformity - due to joint involvement with arthritis Neurological exam: PRESENT: altered - due to dementia Skin exam: PRESENT: dry, intact, warm. ABSENT: cyanosis, rash Results Laboratory Results: 08/19/16 09:37 08/19/16 09:37 08/19/16 08/19/16 09:37 09:37 WBC 10.6 H RBC 4.31 L Hgb 12.0 L Hct 37.0 L MCV 86 MCH 27.9 MCHC 32.5 RDW 15.4 H Plt Count 287 Seg Neutrophils % 72.6 Lymphocytes % 14.4 Monocytes % 9.9 Eosinophils % 2.3 Basophils % 0.8 Absolute Neutrophils 7.7 Absolute Lymphocytes 1.5 Absolute Monocytes 1.1 Absolute Eosinophils 0.2 Absolute Basophils 0.1 Sodium 141.4 Potassium 4.0 Chloride 107 Carbon Dioxide 24 Anion Gap 10 BUN 24 H Creatinine 0.93 Est GFR ( Amer) > 60 Est GFR (Non-Af Amer) > 60 Glucose 103 Calcium 9.0 Impressions: Abdomen/Pelvis CT 08/12/16 22:26 IMPRESSION: 1. GALLSTONES. 2. PROMINENT STOOL IN THE RECTOSIGMOID. POSSIBLE FECAL IMPACTION. 3. NO OTHER SIGNIFICANT OR ACUTE PROCESS IN THE ABDOMEN OR PELVIS. Modified Barium Swallow 08/14/16 00:00 IMPRESSION: LARYNGEAL PENETRATION AND TRACHEAL ASPIRATION WITH THIN LIQUIDS. PLEASE SEE SPEECH PATHOLOGY REPORT FOR FURTHER DETAILS AND RECOMMENDATIONS. Chest X-Ray 08/18/16 13:02 IMPRESSION: Hypoventilatory changes. Assessment & Plan - Diagnosis (1) Senile dementia of Alzheimer's type Is this a current diagnosis for this admission?: YesPlan: See attending physician order. (2) Fecal impaction in rectum Is this a current diagnosis for this admission?: YesPlan: See attending physician order. (3) Nausea, vomiting, and diarrhea Is this a current diagnosis for this admission?: YesPlan: Resolved. See attending physician orders. (4) Hypothyroid Qualifiers: Hypothyroidism type: acquired Qualified Code(s): E03.9 - Hypothyroidism, unspecified Is this a current diagnosis for this admission?: YesPlan: See attending physician order. (5) Cholelithiasis Qualifiers: Cholelithiasis location: gallbladder Cholecystitis acuity: chronic Biliary obstruction: without biliary obstruction Is this a current diagnosis for this admission?: YesPlan: See attending physician order. (6) HLD (hyperlipidemia) Is this a current diagnosis for this admission?: YesPlan: See attending physician order. (7) Enterococcus faecalis infection Is this a current diagnosis for this admission?: YesPlan: Maintain on IV Unasyn 1.5gm q8redvi coverage. See attending physician orders. - Time Time Spent with patient: 25-34 minutes Medications reviewed and adjusted accordingly: Yes Anticipated discharge: Home with Homehealth Within: within 72 hours - Inpatient Certification Medical Necessity: Need For IV Fluids, Need for IV Antibiotics, Risk of Complication if Not Cared For in Hospital Post Hospital Care: D/C Recruiter Coordinator Documentation - Plan Summary Plan Summary: see attending physician orders.
[2016-08-19] MEDS: ATORVASTATIN CALCIUM 10 MG TABLET PO SCH (21:32)
[2016-08-20] MEDS: AMPICILLIN SODIUM/SULBACTAM NA 1.5 GM in NORMAL SALINE 50 ML IV SCH ×2 (00:05→05:58)
[2016-08-20] MEDS ORDERED: INSULIN LISPRO 100 UNIT/ML 3 ML VIAL SUBCUT ONE (01:30)
--- NOTE | 2016-08-20 08:15 | PDOC PROGRESS REPORT ---
Subjective Progress Note for:: 08/20/16 Subjective:: No observed chest pain or difficulty with breathing. No reported fever or chills. No reported nausea or vomiting. Tolerating puree diet with nectar thicken fluid and feeding assistance. Remain on IV Unasyn coverage for Enterococcus Feacalis septicemia management. Physical Exam Vital Signs: Temp Pulse Resp BP Pulse Ox 98.0 F 69 18 128/77 H 100 08/20/16 00:25 08/20/16 00:25 08/20/16 00:25 08/20/16 00:25 08/20/16 00:25 Intake & Output 08/19/16 08/20/16 08/21/16 06:59 06:59 06:59 Intake Total 940 1500 Balance 940 1500 Physical Exam: General appearance: PRESENT: no acute distress, cooperative Head exam: PRESENT: atraumatic, normocephalic Eye exam: PRESENT: conjunctiva pink, EOMI, PERRLA. ABSENT: scleral icterus Neck exam: PRESENT: full ROM. ABSENT: carotid bruit, JVD, lymphadenopathy, thyromegaly Respiratory exam: ABSENT: accessory muscle use, chest wall tenderness, clear to auscultation scar, crackles, decreased breath sounds, prolonged expiratory phase , rales, retraction, rhonchi, stridor, symmetrical, tachypnea, unlabored, wheezes, other Cardiovascular exam: PRESENT: RRR. ABSENT: diastolic murmur, rubs, systolic murmur GI/Abdominal exam: ABSENT: ascites, diminished bowel sounds, distended, firm, guarding, hernia, hyperactive bowel sounds, hypoactive bowel sounds, mass, Charles's sign, normal bowel sounds, organomegaly, rebound, rigid, soft, tenderness, other Extremities exam: PRESENT: full ROM Musculoskeletal exam: PRESENT: deformity - due to joint involvement with arthritis Neurological exam: PRESENT: altered - due to dementia Skin exam: PRESENT: dry, intact, warm. ABSENT: cyanosis, rash Results Laboratory Results: 08/19/16 09:37 08/19/16 09:37 08/19/16 08/19/16 09:37 09:37 WBC 10.6 H RBC 4.31 L Hgb 12.0 L Hct 37.0 L MCV 86 MCH 27.9 MCHC 32.5 RDW 15.4 H Plt Count 287 Seg Neutrophils % 72.6 Lymphocytes % 14.4 Monocytes % 9.9 Eosinophils % 2.3 Basophils % 0.8 Absolute Neutrophils 7.7 Absolute Lymphocytes 1.5 Absolute Monocytes 1.1 Absolute Eosinophils 0.2 Absolute Basophils 0.1 Sodium 141.4 Potassium 4.0 Chloride 107 Carbon Dioxide 24 Anion Gap 10 BUN 24 H Creatinine 0.93 Est GFR ( Amer) > 60 Est GFR (Non-Af Amer) > 60 Glucose 103 Calcium 9.0 Impressions: Abdomen/Pelvis CT 08/12/16 22:26 IMPRESSION: 1. GALLSTONES. 2. PROMINENT STOOL IN THE RECTOSIGMOID. POSSIBLE FECAL IMPACTION. 3. NO OTHER SIGNIFICANT OR ACUTE PROCESS IN THE ABDOMEN OR PELVIS. Modified Barium Swallow 08/14/16 00:00 IMPRESSION: LARYNGEAL PENETRATION AND TRACHEAL ASPIRATION WITH THIN LIQUIDS. PLEASE SEE SPEECH PATHOLOGY REPORT FOR FURTHER DETAILS AND RECOMMENDATIONS. Chest X-Ray 08/18/16 13:02 IMPRESSION: Hypoventilatory changes. Assessment & Plan - Diagnosis (1) Senile dementia of Alzheimer's type Is this a current diagnosis for this admission?: YesPlan: See attending physician order. (2) Fecal impaction in rectum Is this a current diagnosis for this admission?: YesPlan: See attending physician order. (3) Nausea, vomiting, and diarrhea Is this a current diagnosis for this admission?: Yes (4) Hypothyroid Qualifiers: Hypothyroidism type: acquired Qualified Code(s): E03.9 - Hypothyroidism, unspecified Is this a current diagnosis for this admission?: YesPlan: See attending physician order. (5) Cholelithiasis Qualifiers: Cholelithiasis location: gallbladder Cholecystitis acuity: chronic Biliary obstruction: without biliary obstruction Is this a current diagnosis for this admission?: Yes (6) HLD (hyperlipidemia) Is this a current diagnosis for this admission?: Yes (7) Enterococcus faecalis infection Is this a current diagnosis for this admission?: YesPlan: D/C IV Unasyn coverage. Start on Augmentin 500/125mg p.o q8 hours. See attending physician orders. - Time Time Spent with patient: 25-34 minutes Medications reviewed and adjusted accordingly: Yes Within: within 48 hours - Inpatient Certification Medical Necessity: Need Close Monitoring Due to Risk of Patient Decompensation, Need For IV Fluids, Need for IV Antibiotics, Risk of Complication if Not Cared For in Hospital Post Hospital Care: D/C Batt Packer Documentation - Plan Summary Plan Summary: D/C Maxinesyn. Start on Augmentin 500/125 mg p.o [id number].
[2016-08-20] MEDS: POLYETHYLENE GLYCOL 3350 POWDER 17 GM/1 PACKET PO SCH (09:50)
[2016-08-20] MEDS: TAMSULOSIN HCL 0.4 MG CAP.SR.24H PO SCH (09:50)
[2016-08-20] MEDS: RIVASTIGMINE TARTRATE 1.5 MG CAPSULE PO SCH ×2 (09:50→18:46)
[2016-08-20] MEDS: ASPIRIN 81 MG TABLET, CHEWABLE PO SCH (09:50)
[2016-08-20] MEDS: CYANOCOBALAMIN (VITAMIN B-12) 1,000 MCG TABLET PO SCH (09:51)
[2016-08-20] MEDS: AMOXICILLIN TR/POT CLAVULANATE 500-125 MG TAB PO SCH (14:15)
[2016-08-20] MEDS: MUPIROCIN 2% OINTMENT 22 GM TOP SCH (20:04)
[2016-08-21] MEDS: POLYETHYLENE GLYCOL 3350 POWDER 17 GM/1 PACKET PO SCH (10:03)
[2016-08-21] MEDS: MUPIROCIN 2% OINTMENT 22 GM TOP SCH ×2 (10:03→14:33)
[2016-08-21] MEDS: TAMSULOSIN HCL 0.4 MG CAP.SR.24H PO SCH (10:04)
[2016-08-21] MEDS: CYANOCOBALAMIN (VITAMIN B-12) 1,000 MCG TABLET PO SCH (10:04)
[2016-08-21] MEDS: ASPIRIN 81 MG TABLET, CHEWABLE PO SCH (10:04)
[2016-08-21] MEDS: RIVASTIGMINE TARTRATE 1.5 MG CAPSULE PO SCH (10:04)
[2016-08-21] MEDS: ATORVASTATIN CALCIUM 10 MG TABLET PO SCH (10:31)
[2016-08-21] MEDS: AMOXICILLIN TR/POT CLAVULANATE 500-125 MG TAB PO SCH ×2 (10:31→14:33)
--- NOTE | 2016-08-21 13:36 | PDOC DISCHARGE SUMMARY ---
General - Admit/Disc Date/PCP Admission Date/Primary Care Provider: 08/13/16 05:48 Discharge Date: 08/21/16 - Discharge Diagnosis (1) Senile dementia of Alzheimer's type Is this a current diagnosis for this admission?: Yes (2) Fecal impaction in rectum Is this a current diagnosis for this admission?: Yes (3) Nausea, vomiting, and diarrhea Is this a current diagnosis for this admission?: Yes (4) Hypothyroid Is this a current diagnosis for this admission?: Yes (5) Cholelithiasis Is this a current diagnosis for this admission?: Yes (6) HLD (hyperlipidemia) Is this a current diagnosis for this admission?: Yes (7) Enterococcus faecalis infection Is this a current diagnosis for this admission?: Yes - Additional Information Resuscitation Status: Full Code Discharge Diet: As Tolerated - with aspiration precaution, nectar thicken fluid and puree diet Discharge Activity: Activity As Tolerated Home Medications: Ascorbic Acid [Vitamin C 500 mg Tablet] 500 mg PO DAILY 08/13/16 Aspirin [Aspirin 81 mg Chewable Tablet] 81 mg PO DAILY 08/13/16 Cyanocobalamin (Vitamin B-12) [Vitamin B-12 1000 mcg Tablet] 1,000 mg PO DAILY 08/13/16 Diclofenac Sodium [Voltaren] 2 gm TOP QID 08/13/16 Ferrous Sulfate [Feosol 325 mg Tablet] 325 mg PO DAILY 08/13/16 Levothyroxine Sodium [Synthroid 0.075 mg Tablet] 0.075 mg PO DAILY 08/13/16 Memantine HCl [Namenda Xr] 28 mg PO DAILY 08/13/16 Mupirocin 1 applic TOP TID 08/13/16 Polyethylene Glycol 3350 [Miralax Powder 17 gm/Packet] 17 gm PO DAILY 08/13/16 Pravastatin Sodium [Pravachol] 20 mg PO QHS 08/13/16 Rivastigmine Tartrate [Rivastigmine] 4.5 mg PO BID 08/13/16 Tamsulosin HCl [Flomax 0.4 mg Cap.sr] 0.4 mg PO DAILY 08/13/16 Amox Tr/Potassium Clavulanate [Augmentin "500" Tablet] 1 tab PO Q8 #14 tablet 08/21/16 History of Present Illness History of Present Illness: MELYSSA KAISER JR is a 86 year old male brought to the ED by medic with cc about nausea, vomiting and diarrhea reported by son due to patient profound dementia. Family reported associated poor po intake. No noted fever or chills.. No reported difficulty with breathing or observed chest pain. No voiding issue with regard to urination. No person with similar symptoms at home or recent exposure or travel. Hospital Course Hospital Course: Patient was admitted for nausea, vomiting, and diarrhea. His urine culture did grew E. Faecalis with appropriate IV antibiotic coverage. He was eventually changed to oral therapy. There was concern for possible aspiration and his evaluation by speech pathologist did confirm this fear. He has remain on puree diet with nectar thicken fluid with satisfactory intake with feeding supervision. He will be discharge home today with BONE DRIER OPERATOR services that will include visiting nurse, physical therapy and personal care service. He will follow up at the office as instructed upon discharge. Physical Exam Vital Signs: Temp Pulse Resp BP Pulse Ox 98.7 F 67 20 120/59 L 97 08/21/16 00:09 08/21/16 00:09 08/21/16 00:09 08/21/16 00:09 08/21/16 00:09 Intake & Output 08/20/16 08/21/16 08/22/16 06:59 06:59 06:59 Intake Total 1500 1140 Balance 1500 1140 Physical Exam: General appearance: PRESENT: no acute distress, cooperative Head exam: PRESENT: atraumatic, normocephalic Eye exam: PRESENT: conjunctiva pink, EOMI, PERRLA. ABSENT: scleral icterus Neck exam: PRESENT: full ROM. ABSENT: carotid bruit, JVD, lymphadenopathy, thyromegaly Respiratory exam: ABSENT: accessory muscle use, chest wall tenderness, clear to auscultation scar, crackles, decreased breath sounds, prolonged expiratory phase , rales, retraction, rhonchi, stridor, symmetrical, tachypnea, unlabored, wheezes, other Cardiovascular exam: PRESENT: RRR. ABSENT: diastolic murmur, rubs, systolic murmur GI/Abdominal exam: ABSENT: ascites, diminished bowel sounds, distended, firm, guarding, hernia, hyperactive bowel sounds, hypoactive bowel sounds, mass, Charles's sign, normal bowel sounds, organomegaly, rebound, rigid, soft, tenderness, other Extremities exam: PRESENT: full ROM Musculoskeletal exam: PRESENT: deformity - due to joint involvement with arthritis Neurological exam: PRESENT: altered - due to dementia Skin exam: PRESENT: dry, intact, warm. ABSENT: cyanosis, rash Results Laboratory Results: 08/19/16 09:37 08/19/16 09:37 Impressions: Abdomen/Pelvis CT 08/12/16 22:26 IMPRESSION: 1. GALLSTONES. 2. PROMINENT STOOL IN THE RECTOSIGMOID. POSSIBLE FECAL IMPACTION. 3. NO OTHER SIGNIFICANT OR ACUTE PROCESS IN THE ABDOMEN OR PELVIS. Modified Barium Swallow 08/14/16 00:00 IMPRESSION: LARYNGEAL PENETRATION AND TRACHEAL ASPIRATION WITH THIN LIQUIDS. PLEASE SEE SPEECH PATHOLOGY REPORT FOR FURTHER DETAILS AND RECOMMENDATIONS. Chest X-Ray 08/18/16 13:02 IMPRESSION: Hypoventilatory changes. Qualifiers PATEINT BEING DISCHARGED WITH ANY OF THE FOLLOWING DIAGNOSIS?: No Plan Discharge Plan: D/C home today with BONE DRIER OPERATOR services. Followup in office as instructed upon discharge. Time Spent: Less than 30 Minutes
[2016-08-21 17:37] VITALS: BP 140/54
== END 2016-08-21 17:49 | disposition home health service (06) | DRG 57 ==
LOC: ER 19:06 → UNDOADMIN 08-13 01:01 → EH 08-13 01:01 → 4N 08-13 05:47 → EH 08-13 05:48 → 4N 08-13 05:48
PROVIDERS: ADMIT Internal Medicine Geriatric Medicine; ATTEND Internal Medicine Geriatric Medicine
DX: G30.1 Alzheimer's disease with late onset (principal); K80.80 Other cholelithiasis without obstruction; F02.80 Dementia in other diseases classified elsewhere, unspecified severity, without behavioral disturbance, psychotic disturbance, mood disturbance, and anxiety; K56.41 Fecal impaction; E03.9 Hypothyroidism, unspecified; K80.20 Calculus of gallbladder without cholecystitis without obstruction; E78.5 Hyperlipidemia, unspecified; B95.2 Enterococcus as the cause of diseases classified elsewhere; I10 Essential (primary) hypertension; M19.90 Unspecified osteoarthritis, unspecified site; E78.00 Pure hypercholesterolemia, unspecified; Z79.82 Long term (current) use of aspirin; Z79.899 Other long term (current) drug therapy
CPT/HCPCS: 36415; 71010; 74176; 74230; 80048; 80053; 81001; 82962; 85025; 87040; 87077; 87186; 96360; 99285; G8996-GN; G8997-GN; G8998-GN; J0295; J0744; J3490; J7030

== ENCOUNTER 2016-10-28 23:28 | Inpatient (IN) | payer MEDICARE, BC ==
[2016-10-29 01:18] LABS: APPEARANCE,URINE SLIGHTLY-CLOUDY; BILIRUBIN,URINE NEGATIVE (NEGATIVE); GLUCOSE, URINE NEGATIVE (NEGATIVE); KETONES,URINE NEGATIVE (NEGATIVE); LEUKOCYTE ESTERASE,URINE SMALL (NEGATIVE); NITRITE,URINE NEGATIVE (NEGATIVE); PROTEIN,URINE NEGATIVE (NEGATIVE); URINE SPECIFIC GRAVITY 1.024; UROBILINOGEN,URINE NEGATIVE mg/dL (<2.0)
--- NOTE | 2016-10-29 01:24 | ER Document Report ---
ED General - General Stated Complaint: ALTERED MENTAL STATUS Time Seen by Provider: 10/28/16 23:33 Notes: Patient is a pleasant 86-year-old male who presents with complaint of altered mental status, weakness, and severe diarrhea. Patient himself is currently nonverbal. He does have Alzheimer's at baseline; however, is usually awake and alert and will follow commands. Tonight she started. Very weak and stop falling commands. Son called the ambulance. When the ambulance arrived patient started having profuse diarrhea and was initially. Patient's sons that is hard to assess with denies having any pain. He has not noticed any signs of abdominal pain but then again says it is difficult to assess this because of his underlying dementia. Last antibiotic use was approximately 2 months ago. TRAVEL OUTSIDE OF THE [place] IN LAST 30 DAYS: No - Related Data Allergies/Adverse Reactions: No Known Allergies Allergy (Verified 06/21/15 17:41) Past Medical History - Social History Smoking Status: Unknown if Ever Smoked Frequency of alcohol use: None Drug Abuse: None Family History: Reviewed & Not Pertinent - Past Medical History Cardiac Medical History: Reports: Hx Hypercholesterolemia, Hx Hypertension Endocrine Medical History: Reports: Hx Hypothyroidism Musculoskeltal Medical History: Reports Hx Arthritis Psychiatric Medical History: Reports: Hx Dementia - Alzheimer's Past Surgical History: Reports: Hx Orthopedic Surgery - Shoulder - Immunizations Hx Diphtheria, Pertussis, Tetanus Vaccination: No Hx Pneumococcal Vaccination: 09/09/12 Review of Systems - Review of Systems -: Yes ROS unobtainable due to patient's medical condition - Review systems is limited due to patient being nonverbal. Physical Exam - Vital signs Vitals: Pulse Ox 67 L 10/28/16 23:33 - Notes Notes: General Appearance: Weak. Unwell appearing. Vitals: reviewed, See vital signs table. Head: no swelling or tenderness to the head Eyes: PERRL, EOMI, Conjuctiva clear Mouth: No decreasd moisture Neck: Supple, no neck tenderness Lungs: No wheezing, No rales, No rhonci, No accessory muscle use, good air exchange bilaterally. Heart: Normal rate, Regular rythm, No murmur, no rub Abdomen: Normal BS, soft, No rigidity, No abdominal tenderness, No guarding, no rebound, no abdominal masses, no organomegaly Rectal: Large amount of liquid stool coming from rectum. Stool is dark in color. Extremities: strength 5/5 in all extremities, good pulses in all extremities, no swelling or tenderness in the extremities, no edema. Skin: warm, dry, appropriate color, no rash Neuro: Awake and alert. Patient does not follow commands. He does not speak verbally on exam. Full neurologic exam is unable to be obtained due to patient not following commands. Course - Re-evaluation Re-evalutation: 10/29/16 02:16 Patient's to start suddenly having low blood pressure. His blood pressure was initially no 100 systolically. His last 2 blood pressure systolically and 80s. Have ordered an IV fluid bolus. CT of the abdomen has been ordered. Initially his stools seem consistent with C. difficile. The C. difficile test is still pending. His labs have come back showing some metabolic acidosis. I will perform a CT scan to rule out potential ischemic gut. Lactic acid has been ordered. Patient continues to not really show any signs of pain. His abdomen continues to be soft. 10/29/16 02:18 - Vital Signs Vital signs: Temp Pulse Resp BP Pulse Ox 98.2 F 17 104/67 100 10/29/16 04:55 10/29/16 04:51 10/29/16 04:51 10/29/16 04:51 - Laboratory Result Diagrams: 10/29/16 01:26 10/29/16 01:26 Laboratory results interpreted by me: 10/29/16 10/29/16 10/29/16 00:53 01:26 01:26 WBC 17.6 H Hgb 13.4 L MCHC 31.8 L RDW 16.6 H Seg Neuts % (Manual) 86 H Band Neutrophils % 1 L Lymphocytes % (Manual) 5 L Abs Neuts (Manual) 15.3 H Chloride 110 H Carbon Dioxide 18 L BUN 45 H Creatinine 1.45 H Est GFR ( Amer) 56 L Est GFR (Non-Af Amer) 46 L Glucose 164 H Lactic Acid Direct Bilirubin 0.5 H ALT 20 L Alkaline Phosphatase 162 H Ur Leukocyte Esterase SMALL H Urine Ascorbic Acid 40 H 10/29/16 02:38 WBC Hgb MCHC RDW Seg Neuts % (Manual) Band Neutrophils % Lymphocytes % (Manual) Abs Neuts (Manual) Chloride Carbon Dioxide BUN Creatinine Est GFR ( Amer) Est GFR (Non-Af Amer) Glucose Lactic Acid 3.3 H Direct Bilirubin ALT Alkaline Phosphatase Ur Leukocyte Esterase Urine Ascorbic Acid - EKG Interpretation by Me Additional EKG results interpreted by me: 10/29/16 02:09 EKG is reviewed and interpreted by me. EKG shows normal sinus rhythm with rate of 79 beats per minute. No ST segment elevation or depression. No ischemic T wave inversions. QRS duration QTC intervals are within normal range. Old EKG for comparison is from 06/21/2015. - Transfer of Care Notes: 10/29/16 05:03 Patient did have one brief episode of hypotension. This responded well to fluid bolus. He said a few blood pressures in the 90s systolically however his mean arterial pressure has been in the 70s. He's had diffuse diarrhea to the point where we had to place a flexible still rectal tube. His C. difficile has been negative. I did obtain a CT scan to due to the continued diarhea, patient' s age, and his leukocytosis. CT scan was negative. I did consider ischemic gut , but the patient does not have significant pain to palpation of his abdomen, he is only had one brief episode of hypotension, and his CT scan was negative. Patient continues to not show much signs of pain with palpation to the abdomen. At this time I will treat the patient has a colitis. At this time I feel it is appropriate to admit the patient. I did speak with Dr. Wesley, patient's physician, who agrees to admit him. 10/29/16 05:03 Dictation of this chart was performed using voice recognition software; therefore, there may be some unintended grammatical errors. 10/29/16 05:04 Discharge - Discharge Clinical Impression: Colitis Diarrhea Qualifiers: Diarrhea type: unspecified type Qualified Code(s): R19.7 - Diarrhea, unspecified Altered mental state Qualifiers: Altered mental status type: transient alteration of awareness Qualified Code(s) : R40.4 - Transient alteration of awareness Condition: Stable Disposition: ADMITTED INPATIENT Admitting Provider: Maryjane Unit Admitted: [facility]
[2016-10-29 01:46] LABS: HEMATOCRIT 42.2 % (37.9-51.0); HEMOGLOBIN 13.4 g/dL (13.5-17.0); MEAN CORPUSCULAR HEMOGLOBIN 27.9 pg (27.0-33.4); MEAN CORPUSCULAR HGB CONC 31.8 g/dL (32.0-36.0); MEAN CORPUSCULAR VOLUME 88 fl (80-97); RED BLOOD COUNT 4.82 10^6/uL (4.35-5.55); RED CELL DISTRIBUTION WIDTH 16.6 % (11.5-14.0); WHITE BLOOD COUNT 17.6 10^3/uL (4.0-10.5)
[2016-10-29 02:01] LABS: ALANINE AMINOTRANSFERASE 20 U/L (21-72); ALBUMIN 3.7 g/dL (3.5-5.0); ALKALINE PHOSPHATASE 162 U/L (38-126); ANION GAP 15 (5-19); ASPARTATE AMINO TRANSFERASE 21 U/L (17-59); BILIRUBIN,DIRECT 0.5 mg/dL (0.0-0.4); BILIRUBIN,TOTAL 0.7 mg/dL (0.2-1.3); BLOOD UREA NITROGEN 45 mg/dL (7-20); CALCIUM 9.9 mg/dL (8.4-10.2); CARBON DIOXIDE 18 mmol/L (22-30); CHLORIDE 110 mmol/L (98-107); CREATININE RESULT 1.45 mg/dL (0.52-1.25); GLUCOSE 164 mg/dL (75-110); POTASSIUM 4.8 mmol/L (3.6-5.0); SODIUM 142.6 mmol/L (137-145); TOTAL PROTEIN 7.5 g/dL (6.3-8.2)
[2016-10-29] MEDS ORDERED: NORMAL SALINE 1000 ML 1,000 ML IV ONE ×3 (02:06→05:03)
[2016-10-29] MEDS ORDERED: PIPERACILLIN/TAZOBACTAM 3.375 GM VIAL IV ONE (02:15)
[2016-10-29 02:21] LABS: ANISOCYTOSIS 1+; BAND NEUTROPHILS % (MANUAL) 1 % (3-5); BASOPHILS % (MANUAL) 0 % (0-2); EOSINOPHILS % (MANUAL) 0 % (0-6); LYMPHOCYTES % (MANUAL) 5 % (13-45); TOTAL CELLS COUNTED 100; TOXIC GRANULATION SLIGHT
[2016-10-29] MEDS ORDERED: METRONIDAZOLE 500 MG/NS RTU 100 ML IV ONE (04:59)
--- NOTE | 2016-10-29 16:59 | EKG REPORT ---
SEVERITY:- ABNORMAL ECG - SINUS RHYTHM INFERIOR INFARCT, AGE INDETERMINATE CONSIDER ANTERIOR INFARCT : Confirmed by: Davida Rick 29-Oct-2016 16:57:27
--- NOTE | 2016-10-29 19:48 | PDOC H&P ---
History of Present Illness Admission Date/PCP: 10/29/16 05:49 JAQUELINE GUILLERMO Patient complains of: Change in mental status History of Present Illness: MELYSSA KAISER JR is a 86 year old male known to my practice who was brought to the ED due to reported issue of decrease awakefulness and not following command as per assessed by son and daughter in law. Family reported that symptoms started on the night of his presentation. There was episode of profuse diarrhea since onset of his symptoms and arrival of the EMS crew. No observed fever, vomiting, or abdominal discomfort. Patient has history of severe Alzheimer's disease remain nonverbal but on good days do follow commands and remain on thicken fluid with puree diet on assisted feeding program. There is no reported new or unusual food or fluid intake. No observed change in his urine character or significant malodor. Other morbidities include Hypercholesterolemia, Hypertension, Hypothyroidism, and osteoarthritis. Past Medical History Cardiac Medical History: Reports: Hyperlipidema, Hypertension Endocrine Medical History: Reports: Hypothyroidism Musculoskeltal Medical History: Reports: Arthritis Psychiatric Medical History: Reports: Dementia - Alzheimer's Denies: Depression Past Surgical History Past Surgical History: Reports: Orthopedic Surgery - Shoulder Social History Smoking Status: Former Smoker Last Time Smoked: 1959 Frequency of Alcohol Use: None Hx Recreational Drug Use: No Drugs: None Hx Prescription Drug Abuse: No Family History Family History: Reviewed & Not Pertinent Parental Family History Reviewed: Yes Children Family History Reviewed: Yes Sibling(s) Family History Reviewed.: Yes Medication/Allergy Home Medications: Acetaminophen [Tylenol Extra Strength 500 mg Tablet] 500 mg PO Q12 10/29/16 Ascorbic Acid [Vitamin C 500 mg Tablet] 500 mg PO QPM 10/29/16 Aspirin [[place]port Aspirin] 81 mg PO DAILY 10/29/16 Cyanocobalamin (Vitamin B-12) [Vitamin B-12] 1,000 mcg PO DAILY 10/29/16 Ferrous Sulfate [Feosol 325 mg Tablet] 325 mg PO QPM 10/29/16 Levothyroxine Sodium [Synthroid 0.075 mg Tablet] 0.075 mg PO DAILY@0600 Memantine HCl [Namenda Xr] 28 mg PO QPM 10/29/16 Pravastatin Sodium [Pravachol] 20 mg PO QHS 10/29/16 Rivastigmine Tartrate [Rivastigmine] 4.5 mg PO Q12 10/29/16 Tamsulosin HCl [Flomax] 0.4 mg PO QPM 10/29/16 Allergies/Adverse Reactions: No Known Allergies Allergy (Verified 06/21/15 17:41) Review of Systems ROS unobtainable: Due to mental status Physical Exam Vital Signs: Temp Pulse Resp BP Pulse Ox 99.2 F 82 16 133/78 H 100 10/29/16 16:15 10/29/16 16:15 10/29/16 16:15 10/29/16 16:15 10/29/16 16:15 Intake & Output 10/28/16 10/29/16 10/30/16 06:59 06:59 06:59 Intake Total 3 Balance 3 Weight 99.79 kg General appearance: PRESENT: no acute distress, cooperative Head exam: PRESENT: atraumatic, normocephalic Eye exam: PRESENT: conjunctiva pink, EOMI, PERRLA. ABSENT: scleral icterus Ear exam: PRESENT: normal external ear exam Mouth exam: PRESENT: moist - fairly Throat exam: ABSENT: post pharyngeal erythema, tonsillar erythema, tonsillar exudate, tonsillogmegaly, other Neck exam: PRESENT: full ROM. ABSENT: carotid bruit, JVD, lymphadenopathy, thyromegaly Respiratory exam: PRESENT: clear to auscultation scar, decreased breath sounds - at lung bases Cardiovascular exam: PRESENT: irregular rhythm - occasional, systolic murmur. ABSENT: diastolic murmur, rubs Murmur grade: 3 Pulses: PRESENT: normal dorsalis pedis pul, +2 pedal pulses bilateral Vascular exam: PRESENT: normal capillary refill GI/Abdominal exam: PRESENT: normal bowel sounds, soft. ABSENT: distended, guarding, mass, organolmegaly, rebound, tenderness Rectal exam: PRESENT: other - rectalk tube device in use for profuse diarrhea management Extremities exam: PRESENT: full ROM - with demonstrable resistance to movement Musculoskeletal exam: PRESENT: deformity - related to multiple joints involvement with arthritis Neurological exam: PRESENT: alert, awake, other - disoriented x 4 Psychiatric exam: PRESENT: appropriate affect, normal mood. ABSENT: homicidal ideation, suicidal ideation Skin exam: PRESENT: dry, intact, warm. ABSENT: cyanosis, rash Results Laboratory Results: Reviewed on [employer] and form significant component of my medical decision making. 10/29/16 06:25 Lactic Acid 2.2 H Impressions: Chest X-Ray 10/28/16 23:40 IMPRESSION: Stable. No acute cardiopulmonary findings Head CT 10/28/16 23:40 IMPRESSION: Worsened moderate generalized atrophy and small vessel white matter ischemic disease. There is likely associated worsened ex vacuo enlargement of the ventricular and cisternal system ; differential diagnosis includes normal pressure hydrocephalus. Abdomen/Pelvis CTA 10/29/16 02:10 IMPRESSION: No acute findings. Cholelithiasis. Assessment & Plan - Diagnosis (1) Toxic metabolic encephalopathy Is this a current diagnosis for this admission?: YesPlan: See admitting attending physician orders. (2) HTN (hypertension) Qualifiers: Hypertension type: essential hypertension Qualified Code(s): I10 - Essential (primary) hypertension Is this a current diagnosis for this admission?: YesPlan: See admitting attending physician orders. (3) Osteoarthritis involving multiple joints on both sides of body Is this a current diagnosis for this admission?: YesPlan: See admitting attending physician orders. (4) Cholelithiasis Qualifiers: Cholelithiasis location: gallbladder Cholecystitis acuity: chronic Biliary obstruction: without biliary obstruction Is this a current diagnosis for this admission?: YesPlan: See admitting attending physician orders. (5) HLD (hyperlipidemia) Qualifiers: Hyperlipidemia type: pure hypercholesterolemia Qualified Code(s): E78.00 - Pure hypercholesterolemia, unspecified; E78.0 - Pure hypercholesterolemia Is this a current diagnosis for this admission?: YesPlan: See admitting attending physician orders. (6) Leukocytosis Qualifiers: Leukocytosis type: unspecified Qualified Code(s): D72.829 - Elevated white blood cell count, unspecified Is this a current diagnosis for this admission?: YesPlan: See admitting attending physician orders. (7) Senile dementia of Alzheimer's type Is this a current diagnosis for this admission?: YesPlan: See admitting attending physician orders. - Time Time Spent: 50 to 70 Minutes Medications reviewed and adjusted accordingly: Yes Anticipated discharge: Home with Homehealth Within: Other - Inpatient Certification Based on my medical assessment, after consideration of the patient's comorbidities, presenting symptoms, or acuity I expect that the services needed warrant INPATIENT care.: Yes I certify that my determination is in accordance with my understanding of Medicare's requirements for reasonable and necessary INPATIENT services [42 CFR 412.3e].: Yes Medical Necessity: Need Close Monitoring Due to Risk of Patient Decompensation, Need For IV Fluids, Need For Continuous Telemetry Monitoring, Need for IV Antibiotics, Risk of Complication if Not Cared For in Hospital Post Hospital Care: D/C Watch Train Assembler Documentation - Plan Summary Plan Summary: See admitting attending physician orders.
[2016-10-29] MEDS ORDERED: ENOXAPARIN SODIUM INJ 40 MG/0.4 ML DISP.SYRIN SUBCUT ONE (21:00)
[2016-10-29 21:07] LABS: PARTIAL THROMBOPLASTIN TIME 27.4 SEC (23.5-35.8); PROTHROMBIN TIME 13.8 SEC (11.4-15.4)
[2016-10-29] MEDS: CEFTRIAXONE 1 GM/D5W RTU 1 GM/50 ML RTUPB IV SCH (21:10)
[2016-10-29] MEDS: ATORVASTATIN CALCIUM 10 MG TABLET PO SCH (21:10)
[2016-10-29] MEDS: RIVASTIGMINE TARTRATE 1.5 MG CAPSULE PO SCH (21:47)
[2016-10-29] MEDS ORDERED: RIVASTIGMINE TARTRATE 4.5 MG PO SCH (22:00)
[2016-10-30 04:38] LABS: ABSOLUTE LYMPHOCYTES (AUTO) 1.6 10^3/uL (0.5-4.7); ABSOLUTE MONOCYTES (AUTO) 0.9 10^3/uL (0.1-1.4); ABSOLUTE NEUT (AUTO) 5.5 10^3/uL (1.7-8.2); BASOPHILS % (AUTO) 0.4 % (0-2); EOSINOPHILS % (AUTO) 0.5 % (0-6); HEMATOCRIT 35.1 % (37.9-51.0); HEMOGLOBIN 11.5 g/dL (13.5-17.0); HGB HCT DIFFERENCE -0.6; LYMPHOCYTES % (AUTO) 20.3 % (13-45); MEAN CORPUSCULAR HEMOGLOBIN 28.1 pg (27.0-33.4); MEAN CORPUSCULAR HGB CONC 32.9 g/dL (32.0-36.0); MEAN CORPUSCULAR VOLUME 86 fl (80-97); RED CELL DISTRIBUTION WIDTH 16.4 % (11.5-14.0); SEGMENTED NEUTROPHILS % (AUTO) 67.8 % (42-78); WHITE BLOOD COUNT 8.1 10^3/uL (4.0-10.5)
[2016-10-30 05:08] LABS: ALANINE AMINOTRANSFERASE 19 U/L (21-72); ALBUMIN 3.3 g/dL (3.5-5.0); ALKALINE PHOSPHATASE 136 U/L (38-126); ANION GAP 10 (5-19); ASPARTATE AMINO TRANSFERASE 16 U/L (17-59); BILIRUBIN,DIRECT 0.4 mg/dL (0.0-0.4); BILIRUBIN,TOTAL 0.5 mg/dL (0.2-1.3); BLOOD UREA NITROGEN 39 mg/dL (7-20); CALCIUM 9.3 mg/dL (8.4-10.2); CARBON DIOXIDE 21 mmol/L (22-30); CHLORIDE 113 mmol/L (98-107); CREATININE RESULT 1.16 mg/dL (0.52-1.25); GLUCOSE 102 mg/dL (75-110); POTASSIUM 4.5 mmol/L (3.6-5.0); SODIUM 143.6 mmol/L (137-145); TOTAL PROTEIN 6.6 g/dL (6.3-8.2)
[2016-10-30] MEDS: LEVOTHYROXINE SODIUM 0.075 MG TABLET PO SCH (05:33)
[2016-10-30] MEDS: LANSOPRAZOLE 30 MG TAB.RAP.DR PO SCH (05:33)
[2016-10-30] MEDS: NORMAL SALINE 1000 ML 1,000 ML IV PRN ×2 (06:37→17:08)
[2016-10-30] MEDS: ENOXAPARIN SODIUM INJ 40 MG/0.4 ML DISP.SYRIN SUBCUT SCH (07:54)
[2016-10-30] MEDS: CYANOCOBALAMIN (VITAMIN B-12) 1,000 MCG TABLET PO SCH (09:29)
[2016-10-30] MEDS: ASPIRIN 81 MG TABLET, CHEWABLE PO SCH (09:30)
[2016-10-30] MEDS: RIVASTIGMINE TARTRATE 1.5 MG CAPSULE PO SCH ×2 (09:30→21:01)
[2016-10-30] MEDS: TAMSULOSIN HCL 0.4 MG CAP.SR.24H PO SCH (17:09)
[2016-10-30] MEDS: ASCORBIC ACID 500 MG TABLET PO SCH (17:09)
[2016-10-30] MEDS: FERROUS SULFATE 325 MG TABLET PO SCH (17:09)
[2016-10-30] MEDS ORDERED: (PENDING PHARMACY ID) (Memantine Hcl [Namenda Xr] 28 MG) PO SCH (18:00)
--- NOTE | 2016-10-30 18:03 | PDOC PROGRESS REPORT ---
Subjective Progress Note for:: 10/30/16 Subjective:: Tolerating oral feeding with feeding assistance. No reported difficulty with breathing or observed chest pain. No diarrhea. Remain on IV Rocephin therapy. Awaiting blood and urine culture findings. Physical Exam Vital Signs: Temp Pulse Resp BP Pulse Ox 98.5 F 78 19 139/103 H 100 10/30/16 15:08 10/30/16 15:08 10/30/16 15:08 10/30/16 15:08 10/30/16 15:08 Intake & Output 10/29/16 10/30/16 10/31/16 06:59 06:59 06:59 Intake Total 937 360 Output Total 0 Balance 937 360 Weight 95.3 kg General appearance: PRESENT: no acute distress, cooperative Head exam: PRESENT: atraumatic, normocephalic Mouth exam: PRESENT: moist Respiratory exam: PRESENT: clear to auscultation scar, decreased breath sounds - at lung bases Cardiovascular exam: PRESENT: RRR. ABSENT: diastolic murmur, rubs, systolic murmur Murmur grade: 3 GI/Abdominal exam: PRESENT: normal bowel sounds, soft. ABSENT: distended, guarding, mass, organolmegaly, rebound, tenderness Extremities exam: ABSENT: pedal edema Musculoskeletal exam: PRESENT: deformity - related to joint involvement with arthritis Neurological exam: PRESENT: alert, awake. ABSENT: oriented to person, oriented to place, oriented to time, oriented to situation Psychiatric exam: PRESENT: appropriate affect, normal mood. ABSENT: homicidal ideation, suicidal ideation Skin exam: PRESENT: dry, intact, warm. ABSENT: cyanosis, rash Results Laboratory Results: 10/30/16 03:47 10/30/16 03:47 10/30/16 10/30/16 03:47 03:47 WBC 8.1 RBC 4.10 L Hgb 11.5 L Hct 35.1 L MCV 86 MCH 28.1 MCHC 32.9 RDW 16.4 H Plt Count 287 Seg Neutrophils % 67.8 Lymphocytes % 20.3 Monocytes % 11.0 Eosinophils % 0.5 Basophils % 0.4 Absolute Neutrophils 5.5 Absolute Lymphocytes 1.6 Absolute Monocytes 0.9 Absolute Eosinophils 0.0 Absolute Basophils 0.0 Sodium 143.6 Potassium 4.5 Chloride 113 H Carbon Dioxide 21 L Anion Gap 10 BUN 39 H Creatinine 1.16 Est GFR ( Amer) > 60 Est GFR (Non-Af Amer) > 60 Glucose 102 Calcium 9.3 Total Bilirubin 0.5 AST 16 L ALT 19 L Alkaline Phosphatase 136 H Total Protein 6.6 Albumin 3.3 L Impressions: Chest X-Ray 10/28/16 23:40 IMPRESSION: Stable. No acute cardiopulmonary findings Head CT 10/28/16 23:40 IMPRESSION: Worsened moderate generalized atrophy and small vessel white matter ischemic disease. There is likely associated worsened ex vacuo enlargement of the ventricular and cisternal system ; differential diagnosis includes normal pressure hydrocephalus. Abdomen/Pelvis CTA 10/29/16 02:10 IMPRESSION: No acute findings. Cholelithiasis. Assessment & Plan - Diagnosis (1) Toxic metabolic encephalopathy Is this a current diagnosis for this admission?: YesPlan: Improving with current medication management. (2) HTN (hypertension) Qualifiers: Hypertension type: essential hypertension Qualified Code(s): I10 - Essential (primary) hypertension Is this a current diagnosis for this admission?: Yes (3) Osteoarthritis involving multiple joints on both sides of body Is this a current diagnosis for this admission?: Yes (4) Cholelithiasis Qualifiers: Cholelithiasis location: gallbladder Cholecystitis acuity: chronic Biliary obstruction: without biliary obstruction Is this a current diagnosis for this admission?: Yes (5) HLD (hyperlipidemia) Qualifiers: Hyperlipidemia type: pure hypercholesterolemia Qualified Code(s): E78.00 - Pure hypercholesterolemia, unspecified; E78.0 - Pure hypercholesterolemia Is this a current diagnosis for this admission?: Yes (6) Leukocytosis Qualifiers: Leukocytosis type: unspecified Qualified Code(s): D72.829 - Elevated white blood cell count, unspecified Is this a current diagnosis for this admission?: YesPlan: Improving with current medication management. Maintain on IV Rocephin coverage for probable sepsis and follow up on culture results. (7) Senile dementia of Alzheimer's type Is this a current diagnosis for this admission?: Yes (8) Probable sepsis Is this a current diagnosis for this admission?: YesPlan: Improving with current medication management. Maintain on IV Rocephin coverage for probable sepsis and follow up on culture results. - Time Time Spent with patient: 25-34 minutes Medications reviewed and adjusted accordingly: Yes Anticipated discharge: Home with Homehealth Within: Other - Inpatient Certification Based on my medical assessment, after consideration of the patient's comorbidities, presenting symptoms, or acuity I expect that the services needed warrant INPATIENT care.: Yes I certify that my determination is in accordance with my understanding of Medicare's requirements for reasonable and necessary INPATIENT services [42 CFR 412.3e].: Yes Medical Necessity: Need Close Monitoring Due to Risk of Patient Decompensation, Need For IV Fluids, Need For Continuous Telemetry Monitoring, Need for IV Antibiotics, Risk of Complication if Not Cared For in Hospital Post Hospital Care: D/C Senior Test Analyst Documentation - Plan Summary Plan Summary: see attending physician orders.
[2016-10-30] MEDS: CEFTRIAXONE 1 GM/D5W RTU 1 GM/50 ML RTUPB IV SCH (21:02)
[2016-10-30] MEDS: ATORVASTATIN CALCIUM 10 MG TABLET PO SCH (21:02)
[2016-10-31] MEDS: NORMAL SALINE 1000 ML 1,000 ML IV PRN (04:22)
[2016-10-31] MEDS: LEVOTHYROXINE SODIUM 0.075 MG TABLET PO SCH (05:03)
[2016-10-31] MEDS: LANSOPRAZOLE 30 MG TAB.RAP.DR PO SCH (05:03)
[2016-10-31 07:34] LABS: ABSOLUTE BASOPHILS # (AUTO) 0.1 10^3/uL (0.0-0.2); ABSOLUTE EOSINOPHILS # (AUTO) 0.2 10^3/uL (0.0-0.6); ABSOLUTE LYMPHOCYTES (AUTO) 1.8 10^3/uL (0.5-4.7); ABSOLUTE MONOCYTES (AUTO) 0.9 10^3/uL (0.1-1.4); ABSOLUTE NEUT (AUTO) 5.4 10^3/uL (1.7-8.2); BASOPHILS % (AUTO) 0.6 % (0-2); EOSINOPHILS % (AUTO) 1.8 % (0-6); HEMATOCRIT 33.4 % (37.9-51.0); HEMOGLOBIN 10.9 g/dL (13.5-17.0); HGB HCT DIFFERENCE -0.7; LYMPHOCYTES % (AUTO) 21.9 % (13-45); MEAN CORPUSCULAR HEMOGLOBIN 28.2 pg (27.0-33.4); MEAN CORPUSCULAR HGB CONC 32.6 g/dL (32.0-36.0); MEAN CORPUSCULAR VOLUME 86 fl (80-97); RED BLOOD COUNT 3.87 10^6/uL (4.35-5.55); SEGMENTED NEUTROPHILS % (AUTO) 64.7 % (42-78); WHITE BLOOD COUNT 8.4 10^3/uL (4.0-10.5)
[2016-10-31 07:51] LABS: ANION GAP 11 (5-19); BLOOD UREA NITROGEN 26 mg/dL (7-20); CALCIUM 8.9 mg/dL (8.4-10.2); CARBON DIOXIDE 20 mmol/L (22-30); CHLORIDE 113 mmol/L (98-107); CREATININE RESULT 0.89 mg/dL (0.52-1.25); GLUCOSE 88 mg/dL (75-110); POTASSIUM 3.8 mmol/L (3.6-5.0); SODIUM 143.9 mmol/L (137-145)
--- NOTE | 2016-10-31 08:13 | PDOC PROGRESS REPORT ---
Subjective Progress Note for:: 10/31/16 Subjective:: Tolerating oral feeding with feeding assistance. No reported difficulty with breathing or observed chest pain. No diarrhea. Remain on IV Rocephin therapy. Awaiting blood and urine culture findings. Physical Exam Vital Signs: Temp Pulse Resp BP Pulse Ox 97.7 F 97 16 135/60 H 98 10/30/16 23:43 10/31/16 02:00 10/30/16 23:43 10/30/16 23:43 10/30/16 23:43 Intake & Output 10/30/16 10/31/16 11/01/16 06:59 06:59 06:59 Intake Total 937 2836 Output Total 0 Balance 937 2836 Weight 95.3 kg 94.4 kg Physical Exam: General appearance: PRESENT: no acute distress, cooperative Head exam: PRESENT: atraumatic, normocephalic Mouth exam: PRESENT: moist Respiratory exam: PRESENT: clear to auscultation scar, decreased breath sounds - at lung bases Cardiovascular exam: PRESENT: RRR. ABSENT: diastolic murmur, rubs, systolic murmur Murmur grade: 3 GI/Abdominal exam: PRESENT: normal bowel sounds, soft. ABSENT: distended, guarding, mass, organomegaly, rebound, tenderness Extremities exam: ABSENT: pedal edema Musculoskeletal exam: PRESENT: deformity - related to joint involvement with arthritis Neurological exam: PRESENT: alert, awake. ABSENT: oriented to person, oriented to place, oriented to time, oriented to situation Psychiatric exam: PRESENT: appropriate affect, normal mood. ABSENT: homicidal ideation, suicidal ideation Skin exam: PRESENT: dry, intact, warm. ABSENT: cyanosis, rash Murmur grade: 3 Results Laboratory Results: 10/31/16 07:25 10/31/16 07:25 10/31/16 10/31/16 10/31/16 07:25 07:25 07:25 WBC 8.4 RBC 3.87 L Hgb 10.9 L Hct 33.4 L MCV 86 MCH 28.2 MCHC 32.6 RDW 16.0 H Plt Count 254 Seg Neutrophils % 64.7 Lymphocytes % 21.9 Monocytes % 11.0 Eosinophils % 1.8 Basophils % 0.6 Absolute Neutrophils 5.4 Absolute Lymphocytes 1.8 Absolute Monocytes 0.9 Absolute Eosinophils 0.2 Absolute Basophils 0.1 Sodium 143.9 Potassium 3.8 Chloride 113 H Carbon Dioxide 20 L Anion Gap 11 BUN 26 H Creatinine 0.89 Est GFR ( Amer) > 60 Est GFR (Non-Af Amer) > 60 Glucose 88 Lactic Acid 0.7 Calcium 8.9 10/29/16 16:55 Nasophary (Mrsa Only) MRSA Surveillance Culture - Final NO MRSA RECOVERED Impressions: Chest X-Ray 10/28/16 23:40 IMPRESSION: Stable. No acute cardiopulmonary findings Head CT 10/28/16 23:40 IMPRESSION: Worsened moderate generalized atrophy and small vessel white matter ischemic disease. There is likely associated worsened ex vacuo enlargement of the ventricular and cisternal system ; differential diagnosis includes normal pressure hydrocephalus. Abdomen/Pelvis CTA 10/29/16 02:10 IMPRESSION: No acute findings. Cholelithiasis. Assessment & Plan - Diagnosis (1) Toxic metabolic encephalopathy Is this a current diagnosis for this admission?: Yes (2) HTN (hypertension) Qualifiers: Hypertension type: essential hypertension Qualified Code(s): I10 - Essential (primary) hypertension Is this a current diagnosis for this admission?: Yes (3) Osteoarthritis involving multiple joints on both sides of body Is this a current diagnosis for this admission?: Yes (4) Cholelithiasis Qualifiers: Cholelithiasis location: gallbladder Cholecystitis acuity: chronic Biliary obstruction: without biliary obstruction Is this a current diagnosis for this admission?: Yes (5) HLD (hyperlipidemia) Qualifiers: Hyperlipidemia type: pure hypercholesterolemia Qualified Code(s): E78.00 - Pure hypercholesterolemia, unspecified; E78.0 - Pure hypercholesterolemia Is this a current diagnosis for this admission?: Yes (6) Leukocytosis Qualifiers: Leukocytosis type: unspecified Qualified Code(s): D72.829 - Elevated white blood cell count, unspecified Is this a current diagnosis for this admission?: Yes (7) Senile dementia of Alzheimer's type Is this a current diagnosis for this admission?: Yes (8) Probable sepsis Is this a current diagnosis for this admission?: Yes - Time Time Spent with patient: 25-34 minutes Medications reviewed and adjusted accordingly: Yes Anticipated discharge: Home with Homehealth Within: Other - Inpatient Certification Medical Necessity: Need Close Monitoring Due to Risk of Patient Decompensation, Need For Continuous Telemetry Monitoring, Need for IV Antibiotics, Risk of Complication if Not Cared For in Hospital Post Hospital Care: D/C Yard Spotter Documentation - Plan Summary Plan Summary: See attending physician orders.
[2016-10-31] MEDS: RIVASTIGMINE TARTRATE 1.5 MG CAPSULE PO SCH ×2 (09:27→21:54)
[2016-10-31] MEDS: CYANOCOBALAMIN (VITAMIN B-12) 1,000 MCG TABLET PO SCH (09:27)
[2016-10-31] MEDS: ENOXAPARIN SODIUM INJ 40 MG/0.4 ML DISP.SYRIN SUBCUT SCH (09:27)
[2016-10-31] MEDS: ASPIRIN 81 MG TABLET, CHEWABLE PO SCH (09:27)
--- NOTE | 2016-10-31 09:52 | Physician Advisory Note ---
Physician Advisor ProgressNote .: Pursuant to the [facility] for [facility], I have reviewed the medical record for this patient. Physician Advisor Statement: Possible documentation opportunities if attending agrees: 1. "probable sepsis, present on admission, likely due to " [ UTI? ] 2. "acute metabolic acidosis, likely due to infection/sepsis" 3. "Acute Kidney Injury/ARF, likely due to " [sepsis? intravascular volume depletion? both? - Cr now down to 0.89 from 1.45] 4. "Atherosclerotic cerebrovascular disease" [CT = small vessel white matter ischemic dz] 5. "leukocytosis, likely due to " [or, if this is due to another listed dx, such as the sepsis, need not list this as a separate "dx" ] As always, if concerned about any unstable VS or abnormal labs, please comment on them & note what doing about them, & please document each day the potential clinical problems you are concerned could occur if pt not kept in hospital for tx at this time. Thanks for your help with documentation accuracy/specificity improvement! Gwendolyn Cardenas MD [facility] Physician Advisor, Fellow of Hospital Medicine *Possible sepsis dx is well supported given tachycardia, leukocytosis, drop in BP from 156/121 to 80s/40s-50s w/MAP 50s-60s at times early on, acute metabolic acidosis, hyperlactatemia, LORI.
[2016-10-31] MEDS: FERROUS SULFATE 325 MG TABLET PO SCH (17:01)
[2016-10-31] MEDS: ASCORBIC ACID 500 MG TABLET PO SCH (17:01)
[2016-10-31] MEDS: TAMSULOSIN HCL 0.4 MG CAP.SR.24H PO SCH (17:01)
[2016-10-31] MEDS: CEFTRIAXONE 1 GM/D5W RTU 1 GM/50 ML RTUPB IV SCH (21:53)
[2016-10-31] MEDS: ATORVASTATIN CALCIUM 10 MG TABLET PO SCH (21:53)
[2016-11-01] MEDS: NORMAL SALINE 1000 ML 1,000 ML IV PRN (01:42)
[2016-11-01] MEDS: LANSOPRAZOLE 30 MG TAB.RAP.DR PO SCH (06:13)
[2016-11-01] MEDS: LEVOTHYROXINE SODIUM 0.075 MG TABLET PO SCH (06:13)
[2016-11-01] MEDS: RIVASTIGMINE TARTRATE 1.5 MG CAPSULE PO SCH (10:06)
[2016-11-01] MEDS: CYANOCOBALAMIN (VITAMIN B-12) 1,000 MCG TABLET PO SCH (10:07)
[2016-11-01] MEDS: ENOXAPARIN SODIUM INJ 40 MG/0.4 ML DISP.SYRIN SUBCUT SCH (10:07)
[2016-11-01] MEDS: ASPIRIN 81 MG TABLET, CHEWABLE PO SCH (10:07)
--- NOTE | 2016-11-01 15:33 | PDOC DISCHARGE SUMMARY ---
General - Admit/Disc Date/PCP Admission Date/Primary Care Provider: 10/29/16 09:00 JAQUELINE GUILLERMO Discharge Date: 11/01/16 - Discharge Diagnosis (1) Toxic metabolic encephalopathy Is this a current diagnosis for this admission?: YesSummary: Most likely due to infectious process and volume depletion. (2) HTN (hypertension) Is this a current diagnosis for this admission?: Yes (3) Osteoarthritis involving multiple joints on both sides of body Is this a current diagnosis for this admission?: Yes (4) Cholelithiasis Is this a current diagnosis for this admission?: Yes (5) HLD (hyperlipidemia) Is this a current diagnosis for this admission?: Yes (6) Leukocytosis Is this a current diagnosis for this admission?: YesSummary: Most likely due to UTI. (7) Senile dementia of Alzheimer's type Is this a current diagnosis for this admission?: Yes (8) Probable sepsis Is this a current diagnosis for this admission?: YesSummary: Mostly UTI although culture negative. (9) Acute kidney injury Is this a current diagnosis for this admission?: YesSummary: Resolved and most likely due to volume depletion. (10) Atherosclerotic cerebrovascular disease Is this a current diagnosis for this admission?: YesSummary: As per Brain CT scan findings. May be contributing factor to his dementia. - Additional Information Discharge Diet: Cardiac Discharge Activity: Activity As Tolerated Home Medications: Acetaminophen [Tylenol Extra Strength 500 mg Tablet] 500 mg PO Q12 10/29/16 Ascorbic Acid [Vitamin C 500 mg Tablet] 500 mg PO QPM 10/29/16 Aspirin [[place] Aspirin] 81 mg PO DAILY 10/29/16 Cyanocobalamin (Vitamin B-12) [Vitamin B-12] 1,000 mcg PO DAILY 10/29/16 Ferrous Sulfate [Feosol 325 mg Tablet] 325 mg PO QPM 10/29/16 Levothyroxine Sodium [Synthroid 0.075 mg Tablet] 0.075 mg PO DAILY@0600 Memantine HCl [Namenda Xr] 28 mg PO QPM 10/29/16 Pravastatin Sodium [Pravachol] 20 mg PO QHS 10/29/16 Rivastigmine Tartrate [Rivastigmine] 4.5 mg PO Q12 10/29/16 Tamsulosin HCl [Flomax] 0.4 mg PO QPM 10/29/16 Cefuroxime Axetil [Ceftin 500 mg Tablet] 1 tab PO BID #14 tablet 11/01/16 History of Present Illness History of Present Illness: MELYSSA KAISER JR is a 86 year old male known to my practice who was brought to the ED due to reported issue of decrease awakefulness and not following command as per assessed by son and daughter in law. Family reported that symptoms started on the night of his presentation. There was episode of profuse diarrhea since onset of his symptoms and arrival of the EMS crew. No observed fever, vomiting, or abdominal discomfort. Patient has history of severe Alzheimer's disease remain nonverbal but on good days do follow commands and remain on thicken fluid with puree diet on assisted feeding program. There is no reported new or unusual food or fluid intake. No observed change in his urine character or significant malodor. Other morbidities include Hypercholesterolemia, Hypertension, Hypothyroidism, and osteoarthritis. Hospital Course Hospital Course: Patient responded to IV hydration and antibiotic therapy. His presenting leukocytosis did resolved. He remain afebrile for past 48 hours. Tolerating oral feeding with assistance on puree and thicken liquid diet restriction. Urine culture is no growth x 2 days and blood culture ahs been to growth to date. I will maintain on Cefuroxime 500 mg po bid x 7 days. Follow up on blood culture findings. Physical Exam Vital Signs: Temp Pulse Resp BP Pulse Ox 99.3 F 61 16 144/76 H 99 11/01/16 07:33 11/01/16 14:00 11/01/16 07:33 11/01/16 07:33 11/01/16 07:33 Intake & Output 10/31/16 11/01/16 11/02/16 06:59 06:59 06:59 Intake Total 2836 1550 240 Output Total 0 Balance 2836 1550 240 Weight 94.4 kg 95.4 kg General appearance: PRESENT: no acute distress, well-developed, well-nourished Head exam: PRESENT: atraumatic, normocephalic Eye exam: PRESENT: conjunctiva pink, EOMI, PERRLA. ABSENT: scleral icterus Respiratory exam: PRESENT: clear to auscultation scar, decreased breath sounds - bilateral lung bases Cardiovascular exam: PRESENT: RRR, systolic murmur. ABSENT: diastolic murmur, rubs Murmur grade: 3 GI/Abdominal exam: PRESENT: normal bowel sounds, soft. ABSENT: distended, guarding, mass, organolmegaly, rebound, tenderness Neurological exam: PRESENT: alert, awake. ABSENT: oriented to person, oriented to place, oriented to time, oriented to situation Psychiatric exam: PRESENT: appropriate affect Skin exam: PRESENT: dry, intact, warm. ABSENT: cyanosis, rash Results Laboratory Results: 10/31/16 07:25 10/31/16 07:25 Impressions: Chest X-Ray 10/28/16 23:40 IMPRESSION: Stable. No acute cardiopulmonary findings Head CT 10/28/16 23:40 IMPRESSION: Worsened moderate generalized atrophy and small vessel white matter ischemic disease. There is likely associated worsened ex vacuo enlargement of the ventricular and cisternal system ; differential diagnosis includes normal pressure hydrocephalus. Abdomen/Pelvis CTA 10/29/16 02:10 IMPRESSION: No acute findings. Cholelithiasis. Qualifiers PATEINT BEING DISCHARGED WITH ANY OF THE FOLLOWING DIAGNOSIS?: No Plan Discharge Plan: D/C home today. Follow up in office as instructed upon discharge. Time Spent: Less than 30 Minutes
[2016-11-01 16:21] VITALS: BP 149/72
== END 2016-11-01 18:06 | disposition home health service (06) | DRG 92 ==
LOC: ER 23:28 → EH 10-29 05:49 → UNDOADMIN 10-29 05:49 → EH 10-29 08:03 → 3W 10-29 08:03 → EH 10-29 09:00 → 3W 10-29 09:00
PROVIDERS: ADMIT Internal Medicine Geriatric Medicine; ATTEND Internal Medicine Geriatric Medicine
DX: G92 Toxic encephalopathy (principal); K80.10 Calculus of gallbladder with chronic cholecystitis without obstruction; N17.9 Acute kidney failure, unspecified; E87.2 Acidosis; I10 Essential (primary) hypertension; M15.3 Secondary multiple arthritis; E78.5 Hyperlipidemia, unspecified; G30.1 Alzheimer's disease with late onset; F02.80 Dementia in other diseases classified elsewhere, unspecified severity, without behavioral disturbance, psychotic disturbance, mood disturbance, and anxiety; I25.10 Atherosclerotic heart disease of native coronary artery without angina pectoris; Z79.899 Other long term (current) drug therapy; E03.9 Hypothyroidism, unspecified; Z87.891 Personal history of nicotine dependence; Z79.82 Long term (current) use of aspirin
CPT/HCPCS: 36415; 70450; 71010; 74174; 80048; 80053; 81001; 83605; 85025; 85610; 85730; 87040; 87045; 87086; 87205; 87493; 93005; 93010; 96361; 96365; 99285; J0696; J1650; J2543; J3490; J7030

== ENCOUNTER 2018-07-29 21:53 | Inpatient (IN) | payer MEDICARE, BC ==
--- NOTE | 2018-07-29 22:10 | ER Document Report ---
ED Respiratory Problem - General Chief Complaint: Respiratory Distress Stated Complaint: RESPIRATORY DISTRESS Time Seen by Provider: 07/29/18 22:00 Mode of Arrival: Medic Information source: Relative, Emergency Med Personnel Cannot obtain history due to: Dementia Notes: HISTORY OF PRESENT ILLNESS: Patient is an 88-year-old male with a significant past medical history of end- stage dementia currently nonverbal who presents with difficulty breathing. Patient is unable to give information, therefore all information is obtained by emergency personnel as well as family. Per the report, the patient moved into "a snf today" and then began having difficulty breathing. Location: Chest Onset: Sudden Provocation: Unknown Quality: "He is not breathing right" Radiation: None Severity: Severe Timing: Constant Known sick contacts: "Probably sorry but I am not sure" Associated symptoms: Fever, difficulty breathing, swelling Home treatment: Tylenol CODE STATUS: DO NOT INTUBATE, comfort care currently on hospice REVIEW OF SYSTEMS: (A complete 12 point review of systems is unable to be obtained due to the patient's mental status) CONSTITUTIONAL : Positive for fevers and sweats. EENT: Denies eye, ear, throat, or mouth pain or symptoms. Denies nasal or sinus congestion. CARDIOVASCULAR: Denies chest pain. RESPIRATORY: Positive difficulty breathing and congestion. GASTROINTESTINAL: Denies abdominal pain. Denies nausea, vomiting, or diarrhea. Denies constipation. GENITOURINARY: Denies difficulty urinating, painful urination, burning, frequency, or blood in urine.. MUSCULOSKELETAL: Denies body aches. Denies neck or back pain or joint pain or s welling. SKIN: Denies rash or skin lesions. HEMATOLOGIC : Denies easy bruising or bleeding. LYMPHATIC: Denies swollen, enlarged glands. NEUROLOGICAL: Denies altered mental status or loss of consciousness. PSYCHIATRIC: Denies anxiety or stress or depression. All other systems reviewed and negative. PHYSICAL EXAMINATION: GENERAL: Sick appearing in significant distress. Diaphoretic. HEAD: Atraumatic, normocephalic. No scalp deformity, depression, or crepitance. EYES: Pupils are 1mm and equal/round/reactive to light, extraocular movements intact, sclera anicteric, conjunctiva are normal. ENT: Nares patent bilaterally, oropharynx clear without exudates or palatal petechia. Moist mucous membranes. No tonsil hypertrophy. NECK: Normal range of motion, supple without lymphadenopathy. LUNGS: Breath sounds are diminished bilaterally with coarse rhonchi, no wheezes or rales. HEART: Tachycardia without murmurs, rubs, or gallops. 2+ peripheral pulses. Normal capillary refill. ABDOMEN: Soft, nontender, nondistended. Normoactive bowel sounds. No guarding, no rebound. No masses appreciated. BACK: Normal contour, no midline tenderness. Rectal exam deferred. PELVC: Deferred. EXTREMITIES: Baseline contractures of the upper extremities with decreased range of motion of all 4 extremities, no pitting or edema. No cyanosis. NEUROLOGICAL: Nonverbal and does not respond to pain. PSYCH: Unable to be obtained. SKIN: Slight pallor and diaphoresis, cool to the touch, no rashes or lesions noted. ASSESSMENT AND PLAN: This patient is a 88-year-old male who presents with respiratory distress that likely represents acute infection in the setting of tachycardia and difficulty breathing. 1. Will obtain sepsis labs, start empiric IV antibiotics, and discuss admission with the family and the patient's primary physician. 2. Will not intubate the patient given his MOST form that is present at bedside the specifically states his wishes. Otherwise, the patient is a full code. TRAVEL OUTSIDE OF THE [place] IN LAST 30 DAYS: No - Related Data Allergies/Adverse Reactions: No Known Allergies Allergy (Verified 06/21/15 17:41) Past Medical History - General Information source: Relative, Emergency Med Personnel Cannot obtain history due to: Dementia - Social History Smoking Status: Former Smoker Chew tobacco use (# tins/day): No Frequency of alcohol use: None Drug Abuse: None Lives with: [facility] Family History: Reviewed & Not Pertinent Patient has suicidal ideation: No Patient has homicidal ideation: No - Past Medical History Cardiac Medical History: Reports: Hx Hypercholesterolemia, Hx Hypertension Pulmonary Medical History: Reports: None EENT Medical History: Reports: None Neurological Medical History: Reports: None Endocrine Medical History: Reports: Hx Hypothyroidism Renal/ Medical History: Reports: None Malignancy Medical History: Reports None GI Medical History: Reports: None Musculoskeletal Medical History: Reports Hx Arthritis Skin Medical History: Reports None Psychiatric Medical History: Reports: Hx Dementia - Alzheimer's Denies: Hx Depression Traumatic Medical History: Reports: None Infectious Medical History: Reports: None Past Surgical History: Reports: Hx Orthopedic Surgery - Shoulder - Immunizations Immunizations up to date: Yes Hx Diphtheria, Pertussis, Tetanus Vaccination: No History of Influenza Vaccine for 03/2017 - 08/2017 Season: Unknown Hx Pneumococcal Vaccination: 09/09/12 Physical Exam - Vital signs Vitals: Temp Pulse Resp BP Pulse Ox 99.9 F 110 H 26 H 96/57 L 94 07/29/18 21:53 07/29/18 21:53 07/29/18 21:53 07/29/18 21:53 07/29/18 21:53 Course - Re-evaluation Re-evalutation: 07/30/18 01:00 Blood work shows elevated white blood cell count, elevated troponin, and a chest x-ray consistent with likely right-sided pneumonia. Patient will be admitted for pneumonia and possible developing sepsis. 07/30/18 01:42 After speaking with the family, they agree the patient needs to be admitted and "do not care if he loses his hospice." - Vital Signs Vital signs: Temp Pulse Resp BP Pulse Ox 99.9 F 110 H 20 103/67 100 07/29/18 21:53 07/29/18 21:53 07/30/18 03:01 07/30/18 03:01 07/30/18 03:01 - Laboratory Result Diagrams: 07/29/18 22:39 07/29/18 22:39 Laboratory results interpreted by me: 07/29/18 07/29/18 07/29/18 22:39 22:39 22:39 WBC 18.3 H RBC 4.22 L Hgb 12.9 L RDW 15.6 H Seg Neutrophils % 86.4 H Lymphocytes % 7.0 L Absolute Neutrophils 15.8 H Carbonic Acid ABG pH ABG pCO2 ABG pO2 ABG HCO3 ABG Total CO2 ABG O2 Saturation Sodium 133.5 L Glucose 246 H Alkaline Phosphatase 162 H Creatine Kinase 23 L NT-Pro-B Natriuret Pep 9150 H Total Protein 6.0 L Albumin 3.1 L 07/29/18 22:40 WBC RBC Hgb RDW Seg Neutrophils % Lymphocytes % Absolute Neutrophils Carbonic Acid 2.31 H ABG pH 7.17 L* ABG pCO2 76.6 H* ABG pO2 149.7 H ABG HCO3 27.1 H ABG Total CO2 29.5 H ABG O2 Saturation 98.3 H Sodium Glucose Alkaline Phosphatase Creatine Kinase NT-Pro-B Natriuret Pep Total Protein Albumin - Diagnostic Test Radiology reviewed: Image reviewed, Reports reviewed - EKG Interpretation by Me EKG shows normal: Sinus rhythm Rate: Tachycardia Rhythm: Arrthymia Hudson/QRS: No: Right axis deviation, Left axis deviation, RBBB, LBBB, IVCD, LAHB/LAFB, LPHB/LPFB, Bifasicular block Voltage: Decreased voltage P Waves: No: MICKEY, LAE, Absent, AV Dissociation, Other Heart block present: No: 1st Degree, Mobitz 1, Mobitz 2, CHB (3rd degree block) When compared to previous EKG there are: No significant change - Consults Dr. Wesley Time consulted: 01:41 - will admit Consulted provider: will come to ER Critical Care Note - Critical Care Note Total time excluding time spent on procedures (mins): 120 Comments: Critical care time spent obtaining history from patient or surrogate, discussi ons with consultants, development of treatment plan with patient or surrogate, evaluation of patient's response to treatment, examination of patient, ordering and performing treatments and interventions, ordering and review of laboratory studies, re-evaluation of patient's condition, ordering and review of radiographic studies and review of old charts Discharge - Discharge Clinical Impression: Respiratory distress Community acquired pneumonia Qualifiers: Laterality: right Lung location: middle lobe of lung Qualified Code(s): J18.1 - Lobar pneumonia, unspecified organism Condition: Serious Disposition: ADMITTED INPATIENT Admitting Provider: Maryjane Unit Admitted: Medical Floor
[2018-07-29] MEDS ORDERED: VANCOMYCIN HCL INJ 1000 MG VIAL IV ONE (22:19)
[2018-07-29] MEDS ORDERED: CEFEPIME 1 GM/D5W RTU 1 GM/50 ML RTUPB IV ONE (22:19)
--- NOTE | 2018-07-29 22:48 | RADIOLOGY REPORT (SQ) ---
EXAM DESCRIPTION: XR CHEST 1 VIEW COMPLETED DATE/TME: 07/29/2018 22:15 CLINICAL HISTORY: 88 years, Male, Respiratory distress COMPARISON: 10/29/2016 chest, 08/18/2016 chest NUMBER OF VIEWS: 1 TECHNIQUE: Portable upright chest LIMITATIONS: None. FINDINGS: Heart size at the upper limits of normal. Overlying artifact. Atheromatous change thoracic aorta. Interstitial edema with perihilar airspace opacity on the right possibly reflecting a component of alveolar edema. Pneumonitis not excluded. Blunting of the costophrenic angles consistent with tiny effusions and/or pleural thickening. No pneumothorax IMPRESSION: Interstitial edema. Tiny effusions and/or pleural thickening. Right perihilar airspace opacity may reflect a component of alveolar edema or pneumonitis copyright 2010 [id number]- All Rights Reserved
[2018-07-29 23:05] LABS: ABSOLUTE LYMPHOCYTES (AUTO) 1.3 10^3/uL (0.5-4.7); ABSOLUTE MONOCYTES (AUTO) 1.2 10^3/uL (0.1-1.4); ABSOLUTE NEUT (AUTO) 15.8 10^3/uL (1.7-8.2); HEMATOCRIT 38.2 % (37.9-51.0); HEMOGLOBIN 12.9 g/dL (13.5-17.0); MEAN CORPUSCULAR HEMOGLOBIN 30.6 pg (27.0-33.4); MEAN CORPUSCULAR HGB CONC 33.8 g/dL (32.0-36.0); MEAN CORPUSCULAR VOLUME 91 fl (80-97); MONOCYTES % (AUTO) 6.6 % (3-13); PLATELET COUNT 346 10^3/uL (150-450); RED BLOOD COUNT 4.22 10^6/uL (4.35-5.55); RED CELL DISTRIBUTION WIDTH 15.6 % (11.5-14.0); SEGMENTED NEUTROPHILS % (AUTO) 86.4 % (42-78); TOTAL CELLS COUNTED % (AUTO) 100 %; WHITE BLOOD COUNT 18.3 10^3/uL (4.0-10.5)
[2018-07-29 23:19] LABS: INTERNATIONAL RATION (INR) 0.91; PROTHROMBIN TIME 12.7 SEC (11.4-15.4)
[2018-07-29 23:20] LABS: PARTIAL THROMBOPLASTIN TIME 30.5 SEC (23.5-35.8)
[2018-07-29 23:25] LABS: ARTERIAL BLOOD BASE EXCESS -3.5 mmol/L; ARTERIAL BLOOD H2CO3 2.31 mmol/L (1.05-1.35); ARTERIAL BLOOD HCO3 27.1 mmol/L (20-24); ARTERIAL BLOOD O2 SATURATION 98.3 % (94-98); ARTERIAL BLOOD PO2 149.7 mmHg (80-100); ARTERIAL BLOOD TOTAL CO2 29.5 mmol/L (23-27)
[2018-07-29 23:27] LABS: ALANINE AMINOTRANSFERASE 23 U/L (21-72); ALBUMIN 3.1 g/dL (3.5-5.0); ALKALINE PHOSPHATASE 162 U/L (38-126); ANION GAP 12 (5-19); ASPARTATE AMINO TRANSFERASE 27 U/L (17-59); BILIRUBIN,DIRECT 0.2 mg/dL (0.0-0.4); BILIRUBIN,TOTAL 0.3 mg/dL (0.2-1.3); BLOOD UREA NITROGEN 16 mg/dL (7-20); CALCIUM 8.5 mg/dL (8.4-10.2); CARBON DIOXIDE 24 mmol/L (22-30); CHLORIDE 98 mmol/L (98-107); CREATINE KINASE 23 U/L (55-170); GLUCOSE 246 mg/dL (75-110); POTASSIUM 4.3 mmol/L (3.6-5.0); SODIUM 133.5 mmol/L (137-145)
[2018-07-29 23:37] LABS: ARTERIAL BLOOD PH 7.17 (7.35-7.45)
[2018-07-29 23:38] LABS: ARTERIAL BLOOD FIO2 100%; ARTERIAL BLOOD PCO2 76.6 mmHg (35-45)
[2018-07-30 00:36] LABS: CREATINE KINASE MB 1.88 ng/mL (<4.55)
[2018-07-30 00:42] LABS: TROPONIN I 0.093 ng/mL
[2018-07-30] MEDS ORDERED: ACETAMINOPHEN 650 MG SUPP.RECT PR PRN (08:06)
[2018-07-30] MEDS ORDERED: NORMAL SALINE 1000 ML 1,000 ML IV PRN (08:07)
--- NOTE | 2018-07-30 09:34 | EKG REPORT ---
SEVERITY:- ABNORMAL ECG - SINUS TACHYCARDIA RUN OF VENTRICULAR PREMATURE COMPLEXES AND APCs LOW VOLTAGE IN FRONTAL LEADS BORDERLINE T ABNORMALITIES, INFERIOR LEADS : Confirmed by: Davida Rick 30-Jul-2018 09:33:41
[2018-07-30] MEDS: LEVOFLOXACIN 500 MG/D5W RTU 500 MG/100 ML RTUPB IV SCH (10:59)
[2018-07-30] MEDS: CEFEPIME 1 GM/D5W RTU 1 GM/50 ML RTUPB IV SCH ×2 (11:01→21:12)
[2018-07-30] MEDS: ENOXAPARIN SODIUM INJ 40 MG/0.4 ML DISP.SYRIN SUBCUT SCH (11:03)
[2018-07-30] MEDS: LANSOPRAZOLE 30 MG TAB.RAP.DR PO SCH (11:03)
--- NOTE | 2018-07-30 19:52 | PDOC H&P ---
History of Present Illness Admission Date/PCP: 07/30/18 01:47 JAQUELINEVARGAS GUILLERMO History of Present Illness: MELYSSA KAISER JR is a 88 year old male patient known to my practice on hospice program who was moved to SNF the day of his presentation on respite care but developed difficulty with breathing and reported fever, congestion and sweating. His initial evaluation in the ED revealed right perihilar airspace opacity, respiratory acidosis with carbon dioxide retention on 100 % FIO2, Leukocytosis with left shift, hyponatremia , and elevated NT-Pro BNP. His morbidities include advance dementia, hypothyroidism, BPH, anemia, and constipation. Patient's family requested admission to hospital for further evaluation and management on a DNR status. Past Medical History Cardiac Medical History: Reports: Hyperlipidema, Hypertension Pulmonary Medical History: Reports: None EENT Medical History: Reports: None Neurological Medical History: Reports: None Endocrine Medical History: Reports: Hypothyroidism Renal/ Medical History: Reports: None Malignancy Medical History: Reports: None GI Medical History: Reports: None Musculoskeltal Medical History: Reports: Arthritis Skin Medical History: Reports: None Psychiatric Medical History: Reports: Dementia - Alzheimer's Denies: Depression Traumatic Medical History: Reports: None Hematology: Reports: Anemia Infectious Medical History: Reports: None Past Surgical History Past Surgical History: Reports: Orthopedic Surgery - Shoulder Social History Lives with: Jail Smoking Status: Former Smoker Frequency of Alcohol Use: None Hx Recreational Drug Use: No Drugs: None Hx Prescription Drug Abuse: No Family History Family History: Reviewed & Not Pertinent Parental Family History Reviewed: Yes Children Family History Reviewed: Yes Sibling(s) Family History Reviewed.: Yes Medication/Allergy Home Medications: Acetaminophen [Tylenol Extra Strength 500 mg Tablet] 1,000 mg PO Q12 07/30/18 Ascorbic Acid [Vitamin C 500 mg Tablet] 500 mg PO DAILY 07/30/18 Aspirin [Ecotrin 81 mg EC Tablet] 81 mg PO DAILY 07/30/18 Cyanocobalamin (Vitamin B-12) [Vitamin B-12 1000 mcg Tablet] 1,000 mcg PO DAILY 07/30/18 Ferrous Sulfate [Feosol 325 mg Tablet] 325 mg PO DAILY 07/30/18 Levothyroxine Sodium [Synthroid 0.075 mg Tablet] 0.075 mg PO Q6AM 07/30/18 Multivitamin [Tab-A-Dionicio (Multiple Vitamin) Tablet] 1 tab PO DAILY 07/30/18 Polyethylene Glycol 3350 [Miralax Powder 17 gm/Packet] 17 gm PO DAILY 07/30/18 Rivastigmine Tartrate [Exelon] 4.5 mg PO BID 07/30/18 Tamsulosin HCl [Flomax 0.4 mg Cap.sr] 0.4 mg PO DAILY 07/30/18 Allergies/Adverse Reactions: No Known Allergies Allergy (Verified 06/21/15 17:41) Review of Systems ROS unobtainable: Due to mental status - due to advanced dementia and nonverbal status Physical Exam Vital Signs: Temp Pulse Resp BP Pulse Ox 96.3 F L 110 H 20 101/59 L 97 07/30/18 16:20 07/29/18 21:53 07/30/18 17:00 07/30/18 17:00 07/30/18 17:00 Intake & Output 07/29/18 07/30/18 07/31/18 06:59 06:59 06:59 Intake Total 50 50 Balance 50 50 Weight 77.111 kg General appearance: PRESENT: mild distress - on supplemental oxygen via nasa cannula Head exam: PRESENT: atraumatic, normocephalic Eye exam: PRESENT: conjunctiva pink, EOMI, PERRLA. ABSENT: scleral icterus Ear exam: PRESENT: normal external ear exam Mouth exam: PRESENT: moist - fairly Teeth exam: PRESENT: edentulous - with dentures in use Respiratory exam: PRESENT: crackles - scattered, decreased breath sounds - at lung bases Cardiovascular exam: PRESENT: RRR. ABSENT: diastolic murmur, rubs, systolic murmur Vascular exam: ABSENT: pallor GI/Abdominal exam: PRESENT: mass, normal bowel sounds, soft Rectal exam: PRESENT: deferred Extremities exam: ABSENT: pedal edema Musculoskeletal exam: PRESENT: deformity - [id number] to multiple joints involvement with arthritis Neurological exam: PRESENT: altered - not responding to painful stimuli Psychiatric exam: ABSENT: appropriate affect Skin exam: PRESENT: dry, warm Results Laboratory Results: 07/29/18 22:39 07/29/18 22:39 07/29/18 07/29/18 07/29/18 22:39 22:39 22:40 WBC 18.3 H RBC 4.22 L Hgb 12.9 L Hct 38.2 MCV 91 MCH 30.6 MCHC 33.8 RDW 15.6 H Plt Count 346 Seg Neutrophils % 86.4 H Lymphocytes % 7.0 L Monocytes % 6.6 Eosinophils % 0.0 Basophils % 0.0 Absolute Neutrophils 15.8 H Absolute Lymphocytes 1.3 Absolute Monocytes 1.2 Absolute Eosinophils 0.0 Absolute Basophils 0.0 Carbonic Acid 2.31 H HCO3/H2CO3 Ratio 11:1 ABG pH 7.17 L* ABG pCO2 76.6 H* ABG pO2 149.7 H ABG HCO3 27.1 H ABG O2 Saturation 98.3 H ABG Base Excess -3.5 FiO2 100% Sodium 133.5 L Potassium 4.3 Chloride 98 Carbon Dioxide 24 Anion Gap 12 BUN 16 Creatinine 0.58 Est GFR ( Amer) > 60 Est GFR (Non-Af Amer) > 60 Glucose 246 H Lactic Acid Calcium 8.5 Total Bilirubin 0.3 AST 27 ALT 23 Alkaline Phosphatase 162 H Total Protein 6.0 L Albumin 3.1 L 07/30/18 00:41 WBC RBC Hgb Hct MCV MCH MCHC RDW Plt Count Seg Neutrophils % Lymphocytes % Monocytes % Eosinophils % Basophils % Absolute Neutrophils Absolute Lymphocytes Absolute Monocytes Absolute Eosinophils Absolute Basophils Carbonic Acid HCO3/H2CO3 Ratio ABG pH ABG pCO2 ABG pO2 ABG HCO3 ABG O2 Saturation ABG Base Excess FiO2 Sodium Potassium Chloride Carbon Dioxide Anion Gap BUN Creatinine Est GFR ( Amer) Est GFR (Non-Af Amer) Glucose Lactic Acid 1.5 Calcium Total Bilirubin AST ALT Alkaline Phosphatase Total Protein Albumin 07/29/18 07/29/18 22:39 22:39 Creatine Kinase 23 L CK-MB (CK-2) 1.88 Troponin I 0.093 NT-Pro-B Natriuret Pep 9150 H Impressions: Chest X-Ray 07/29/18 22:15 IMPRESSION: Interstitial edema. Tiny effusions and/or pleural thickening. Right perihilar airspace opacity may reflect a component of alveolar edema or pneumonitis copyright 2011 [employer]- All Rights Reserved Assessment & Plan - Diagnosis (1) Acute respiratory failure with hypercapnia Is this a current diagnosis for this admission?: Yes Plan: Maintain on supplemental oxygen via nasal cannula since family does not want intubation at this time. (2) Community acquired pneumonia Qualifiers: Laterality: right Lung location: middle lobe of lung Qualified Code(s): J18.1 - Lobar pneumonia, unspecified organism Is this a current diagnosis for this admission?: Yes Plan: Maintain on IV Levofloxacin and Cefepime coverage. Maintain on IV fluid support. (3) Senile dementia of Alzheimer's type Is this a current diagnosis for this admission?: Yes Plan: Continue current supportive care. (4) Hypothyroid Qualifiers: Hypothyroidism type: acquired Qualified Code(s): E03.9 - Hypothyroidism, unspecified Is this a current diagnosis for this admission?: Yes Plan: Continue current supportive care. (5) Osteoarthritis involving multiple joints on both sides of body Is this a current diagnosis for this admission?: Yes Plan: Continue current supportive care. - Time Time Spent: 50 to 70 Minutes Medications reviewed and adjusted accordingly: Yes Anticipated discharge: Hospice Within: Other - Inpatient Certification Based on my medical assessment, after consideration of the patient's comorbidities, presenting symptoms, or acuity I expect that the services needed warrant INPATIENT care.: Yes I certify that my determination is in accordance with my understanding of Medicare's requirements for reasonable and necessary INPATIENT services [42 CFR 412.3e].: Yes Medical Necessity: Significant Comorbidiites Make Outpatient Treatment Too Risky, Need Close Monitoring Due to Risk of Patient Decompensation, Need For IV Fluids, Need For Continuous Telemetry Monitoring, Need for IV Antibiotics, Risk of Complication if Not Cared For in Hospital, Risk of Diagnosis Which Will Require Inpatient Eval/Care/Monitoring 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
[2018-07-31] MEDS ORDERED: NORMAL SALINE 500 ML IV ONE ×3 (00:30→22:00)
[2018-07-31 05:44] LABS: HEMATOCRIT 38.1 % (37.9-51.0); HEMOGLOBIN 12.4 g/dL (13.5-17.0); MEAN CORPUSCULAR HEMOGLOBIN 30.2 pg (27.0-33.4); MEAN CORPUSCULAR HGB CONC 32.5 g/dL (32.0-36.0); MEAN CORPUSCULAR VOLUME 93 fl (80-97); PLATELET COUNT 302 10^3/uL (150-450); RED CELL DISTRIBUTION WIDTH 16.2 % (11.5-14.0); WHITE BLOOD COUNT 14.6 10^3/uL (4.0-10.5)
[2018-07-31 05:56] LABS: ALANINE AMINOTRANSFERASE 19 U/L (21-72); ALBUMIN 2.8 g/dL (3.5-5.0); ALKALINE PHOSPHATASE 127 U/L (38-126); ANION GAP 11 (5-19); ASPARTATE AMINO TRANSFERASE 19 U/L (17-59); BILIRUBIN,DIRECT 0.3 mg/dL (0.0-0.4); BILIRUBIN,TOTAL 0.3 mg/dL (0.2-1.3); BLOOD UREA NITROGEN 29 mg/dL (7-20); CALCIUM 8.2 mg/dL (8.4-10.2); CARBON DIOXIDE 25 mmol/L (22-30); CHLORIDE 101 mmol/L (98-107); GLUCOSE 114 mg/dL (75-110); POTASSIUM 5.8 mmol/L (3.6-5.0); SODIUM 137.3 mmol/L (137-145); TOTAL PROTEIN 5.3 g/dL (6.3-8.2)
[2018-07-31 06:03] LABS: ABSOLUTE LYMPHOCYTES# (MANUAL) 0.7 10^3/uL (0.5-4.7); ABSOLUTE MONOCYTES # (MANUAL) 1.3 10^3/uL (0.1-1.4); ABSOLUTE NEUTROPHILS# (MANUAL) 12.6 10^3/uL (1.7-8.2); BAND NEUTROPHILS % (MANUAL) 5 % (3-5); BASOPHILS % (MANUAL) 0 % (0-2); EOSINOPHILS % (MANUAL) 0 % (0-6); LYMPHOCYTES % (MANUAL) 5 % (13-45); MONOCYTES % (MANUAL) 9 % (3-13); SEGMENTED NEUTROPHILS % (MAN) 81 % (42-78); TOTAL CELLS COUNTED 100
[2018-07-31 06:04] LABS: ANISOCYTOSIS 1+; BURR CELLS 1+; OVALOCYTES SLIGHT; PLATELET COMMENT ADEQUATE; POIKILOCYTOSIS 1+
[2018-07-31] MEDS: LANSOPRAZOLE 30 MG TAB.RAP.DR PO SCH (06:50)
[2018-07-31] MEDS: LEVOFLOXACIN 500 MG/D5W RTU 500 MG/100 ML RTUPB IV SCH (09:55)
[2018-07-31] MEDS: NORMAL SALINE 1000 ML 1,000 ML IV PRN (09:59)
[2018-07-31] MEDS: ENOXAPARIN SODIUM INJ 40 MG/0.4 ML DISP.SYRIN SUBCUT SCH (10:41)
[2018-07-31] MEDS: CEFEPIME 1 GM/D5W RTU 1 GM/50 ML RTUPB IV SCH ×2 (10:42→22:31)
--- NOTE | 2018-07-31 16:20 | PDOC PROGRESS REPORT ---
Subjective Progress Note for:: 07/31/18 Subjective:: Patient remain unresponsive to painful stimuli. He had episodes of core hypothermia and hypotension since last clinical evaluation that responded minimally to warming intervention and fluid bolus support. He remain on IV Levofloxacin and Cefepime coverage. Reason For Visit: COMMUNITY ACQUIRED PNEUMONIA; SDAT Physical Exam Vital Signs: Temp Pulse Resp BP Pulse Ox 97.7 F 86 19 79/45 L 91 L 07/31/18 12:00 07/31/18 12:00 07/31/18 12:00 07/31/18 12:00 07/31/18 12:00 Intake & Output 07/30/18 07/31/18 08/01/18 06:59 06:59 06:59 Intake Total 50 200 100 Balance 50 200 100 Weight 77.111 kg 77.11 kg General appearance: PRESENT: no acute distress Head exam: PRESENT: atraumatic, normocephalic Ear exam: PRESENT: normal external ear exam Mouth exam: PRESENT: moist Respiratory exam: PRESENT: decreased breath sounds, other - agonal breathing pattern Cardiovascular exam: PRESENT: RRR. ABSENT: diastolic murmur, rubs, systolic murmur Vascular exam: ABSENT: pallor GI/Abdominal exam: PRESENT: normal bowel sounds, soft Extremities exam: ABSENT: pedal edema Neurological exam: PRESENT: altered Skin exam: PRESENT: dry, warm Results Laboratory Results: 07/31/18 04:49 07/31/18 04:49 07/31/18 07/31/18 04:49 04:49 WBC 14.6 H RBC 4.10 L Hgb 12.4 L Hct 38.1 MCV 93 MCH 30.2 MCHC 32.5 RDW 16.2 H Plt Count 302 Seg Neutrophils % Not Reportable Lymphocytes % Not Reportable Monocytes % Not Reportable Eosinophils % Not Reportable Basophils % Not Reportable Absolute Neutrophils Not Reportable Absolute Lymphocytes Not Reportable Absolute Monocytes Not Reportable Absolute Eosinophils Not Reportable Absolute Basophils Not Reportable Sodium 137.3 Potassium 5.8 H Chloride 101 Carbon Dioxide 25 Anion Gap 11 BUN 29 H Creatinine 1.00 Est GFR ( Amer) > 60 Est GFR (Non-Af Amer) > 60 Glucose 114 H Calcium 8.2 L Total Bilirubin 0.3 AST 19 ALT 19 L Alkaline Phosphatase 127 H Total Protein 5.3 L Albumin 2.8 L 07/29/18 07/29/18 22:39 22:39 Creatine Kinase 23 L CK-MB (CK-2) 1.88 Troponin I 0.093 NT-Pro-B Natriuret Pep 9150 H Impressions: Chest X-Ray 07/29/18 22:15 IMPRESSION: Interstitial edema. Tiny effusions and/or pleural thickening. Right perihilar airspace opacity may reflect a component of alveolar edema or pneumonitis copyright 2010 [employer]- All Rights Reserved Assessment & Plan - Diagnosis (1) Acute respiratory failure with hypercapnia Is this a current diagnosis for this admission?: Yes (2) Community acquired pneumonia Qualifiers: Laterality: right Lung location: middle lobe of lung Qualified Code(s): J18.1 - Lobar pneumonia, unspecified organism Is this a current diagnosis for this admission?: Yes (3) Senile dementia of Alzheimer's type Is this a current diagnosis for this admission?: Yes (4) Hypothyroid Qualifiers: Hypothyroidism type: acquired Qualified Code(s): E03.9 - Hypothyroidism, unspecified Is this a current diagnosis for this admission?: Yes (5) Osteoarthritis involving multiple joints on both sides of body Is this a current diagnosis for this admission?: Yes - Time Time Spent with patient: 25-34 minutes Medications reviewed and adjusted accordingly: Yes Anticipated discharge: Hospice Within: Other - Inpatient Certification Based on my medical assessment, after consideration of the patient's comorbidities, presenting symptoms, or acuity I expect that the services needed warrant INPATIENT care.: Yes I certify that my determination is in accordance with my understanding of Medicare's requirements for reasonable and necessary INPATIENT services [42 CFR 412.3e].: Yes Medical Necessity: Significant Comorbidiites Make Outpatient Treatment Too Risky, Need Close Monitoring Due to Risk of Patient Decompensation, Need For IV Fluids, Need for IV Antibiotics, Risk of Complication if Not Cared For in Hospital, Risk of Diagnosis Which Will Require Inpatient Eval/Care/Monitoring Post Hospital Care: D/C or Transfer Summary - Plan Summary Plan Summary: Continue IV fluid support and antibiotic coverage. Overall prognosis remain poor and patient remain on DNR status.
[2018-08-01] MEDS: LANSOPRAZOLE 30 MG TAB.RAP.DR PO SCH (06:44)
[2018-08-01] MEDS: LEVOFLOXACIN 500 MG/D5W RTU 500 MG/100 ML RTUPB IV SCH (08:35)
[2018-08-01] MEDS: CEFEPIME 1 GM/D5W RTU 1 GM/50 ML RTUPB IV SCH ×2 (10:11→23:13)
[2018-08-01] MEDS: ENOXAPARIN SODIUM INJ 40 MG/0.4 ML DISP.SYRIN SUBCUT SCH (10:11)
--- NOTE | 2018-08-01 16:26 | PDOC PROGRESS REPORT ---
Subjective Progress Note for:: 08/01/18 Subjective:: Patient is supposedly hospice patient, essentially moribund nonverbal, reduce urinary output. Patient was a DNR until a family member came in this afternoon and insisted that patient should be DO NOT INTUBATE but do chest compression which is a futile process. Blood pressure is low at this point, he will be transferred to [facility] for dopamine infusion, I do not expect this patient to do well, he probably will on this admission Reason For Visit: COMMUNITY ACQUIRED PNEUMONIA; SDAT Physical Exam Vital Signs: Temp Pulse Resp BP Pulse Ox 97.4 F 89 19 81/46 L 90 L 08/01/18 12:00 08/01/18 12:00 08/01/18 12:00 08/01/18 12:00 08/01/18 12:00 Intake & Output 07/31/18 08/01/18 08/02/18 06:59 06:59 06:59 Intake Total 200 2200 150 Balance 200 2200 150 Weight 77.11 kg 78.22 kg General appearance: PRESENT: other - Patient is moribund Eye exam: PRESENT: PERRLA Respiratory exam: PRESENT: crackles, rhonchi Cardiovascular exam: PRESENT: +S1, +S2, systolic murmur Results Laboratory Results: 07/31/18 04:49 07/31/18 04:49 07/29/18 07/29/18 22:39 22:39 Creatine Kinase 23 L CK-MB (CK-2) 1.88 Troponin I 0.093 NT-Pro-B Natriuret Pep 9150 H Impressions: Chest X-Ray 07/29/18 22:15 IMPRESSION: Interstitial edema. Tiny effusions and/or pleural thickening. Right perihilar airspace opacity may reflect a component of alveolar edema or pneumonitis copyright 2011 [employer]- All Rights Reserved Assessment & Plan - Diagnosis (1) Septic shock Is this a current diagnosis for this admission?: Yes Plan: Patient in septic shock, he is essentially moribund, minimal urinary output, obtunded, hospice patient is a DO NOT INTUBATE but do chest compression which is a futile process, will not change the outcome, transferred to [facility] for IV dopamine, do not see a need for ICU care in this patient who is essentially mo ribund
[2018-08-01] MEDS ORDERED: FUROSEMIDE INJ/PF 40 MG/4 ML SDV IV ONE (17:00)
[2018-08-01] MEDS: NORMAL SALINE 1000 ML 1,000 ML IV PRN (17:04)
[2018-08-01] MEDS: DOPAMINE HCL/DEXTROSE 5%-WATER 800 MG/250 ML RTUINJ IV PRN (17:28)
[2018-08-01 17:44] LABS: HEMATOCRIT 38.9 % (37.9-51.0); HEMOGLOBIN 12.5 g/dL (13.5-17.0); MEAN CORPUSCULAR HEMOGLOBIN 30.3 pg (27.0-33.4); MEAN CORPUSCULAR HGB CONC 32.1 g/dL (32.0-36.0); MEAN CORPUSCULAR VOLUME 95 fl (80-97); PLATELET COUNT 283 10^3/uL (150-450); RED BLOOD COUNT 4.12 10^6/uL (4.35-5.55); WHITE BLOOD COUNT 12.8 10^3/uL (4.0-10.5)
[2018-08-01 18:01] LABS: ALANINE AMINOTRANSFERASE 19 U/L (21-72); ALBUMIN 2.7 g/dL (3.5-5.0); ALKALINE PHOSPHATASE 116 U/L (38-126); ANION GAP 12 (5-19); ASPARTATE AMINO TRANSFERASE 35 U/L (17-59); BILIRUBIN,DIRECT 0.4 mg/dL (0.0-0.4); BILIRUBIN,TOTAL 0.4 mg/dL (0.2-1.3); BLOOD UREA NITROGEN 52 mg/dL (7-20); CALCIUM 8.2 mg/dL (8.4-10.2); CARBON DIOXIDE 20 mmol/L (22-30); CHLORIDE 107 mmol/L (98-107); GLUCOSE 93 mg/dL (75-110); SODIUM 139.3 mmol/L (137-145); TOTAL PROTEIN 5.7 g/dL (6.3-8.2)
[2018-08-01 18:04] LABS: POTASSIUM 6.6 mmol/L (3.6-5.0)
[2018-08-01 18:07] LABS: ABSOLUTE LYMPHOCYTES# (MANUAL) 0.5 10^3/uL (0.5-4.7); ABSOLUTE MONOCYTES # (MANUAL) 0.9 10^3/uL (0.1-1.4); ABSOLUTE NEUTROPHILS# (MANUAL) 11.4 10^3/uL (1.7-8.2); BAND NEUTROPHILS % (MANUAL) 1 % (3-5); BASOPHILS % (MANUAL) 0 % (0-2); EOSINOPHILS % (MANUAL) 0 % (0-6); LYMPHOCYTES % (MANUAL) 4 % (13-45); MONOCYTES % (MANUAL) 7 % (3-13); SEGMENTED NEUTROPHILS % (MAN) 88 % (42-78); TOTAL CELLS COUNTED 100
[2018-08-01 18:08] LABS: ANISOCYTOSIS 1+; PLATELET CLUMPS PRESENT; PLATELET COMMENT ADEQUATE
[2018-08-01] MEDS ORDERED: DEXTROSE 50%-WATER 25 GM/50 ML DISP.SYRIN IV ONE (19:00)
[2018-08-01] MEDS ORDERED: INSULIN REG, HUMAN 100 UNIT/ML 3 ML VIAL IV ONE (19:00)
[2018-08-01] MEDS ORDERED: CALCIUM GLUCONATE 1000 MG/10 ML INJ IV ONE (19:00)
[2018-08-01] MEDS ORDERED: INSULIN REG, HUMAN 100 UNIT/ML 3 ML VIAL (PYX) ONE (19:40)
[2018-08-02] MEDS: LANSOPRAZOLE 30 MG TAB.RAP.DR PO SCH (05:53)
[2018-08-02] MEDS: NORMAL SALINE 1000 ML 1,000 ML IV PRN ×2 (05:58→20:47)
[2018-08-02] MEDS: LEVOFLOXACIN 500 MG/D5W RTU 500 MG/100 ML RTUPB IV SCH (07:44)
[2018-08-02] MEDS: CEFEPIME 1 GM/D5W RTU 1 GM/50 ML RTUPB IV SCH ×2 (11:05→22:41)
[2018-08-02] MEDS: ENOXAPARIN SODIUM INJ 40 MG/0.4 ML DISP.SYRIN SUBCUT SCH (11:06)
--- NOTE | 2018-08-02 14:51 | PDOC PROGRESS REPORT ---
Subjective Progress Note for:: 08/02/18 Subjective:: Patient condition is very poor, I saw the patient daughter in the room we discussed prognosis for this patient, he is essentially anuric acute kidney injury mostly likely from ATN blood pressure is a low despite dopamine, family does not want intubation, patient is a DO NOT INTUBATE but the POA wants chest compression overall prognosis is very poor, is not responding the last chemistry demonstrated hypokalemia, is not a candidate for renalreplacement therapy Reason For Visit: PNEUMONIA Physical Exam Vital Signs: Temp Pulse Resp BP Pulse Ox 98.2 F 83 22 H 60/36 L 95 08/02/18 07:33 08/02/18 12:00 08/02/18 04:07 08/02/18 12:00 08/02/18 04:07 Intake & Output 08/01/18 08/02/18 08/03/18 06:59 06:59 06:59 Intake Total 2200 1168 150 Output Total 400 Balance 2200 768 150 Weight 78.22 kg 83.3 kg Head exam: PRESENT: atraumatic Respiratory exam: PRESENT: decreased breath sounds Cardiovascular exam: PRESENT: +S1, +S2 Results Laboratory Results: 08/02/18 09:30 08/01/18 17:25 08/01/18 08/01/18 08/02/18 17:25 17:25 09:30 WBC 12.8 H Cancelled RBC 4.12 L Cancelled Hgb 12.5 L Cancelled Hct 38.9 Cancelled MCV 95 Cancelled MCH 30.3 Cancelled MCHC 32.1 Cancelled RDW 16.0 H Cancelled Plt Count 283 Cancelled Seg Neutrophils % Not Reportable Cancelled Lymphocytes % Not Reportable Cancelled Monocytes % Not Reportable Cancelled Eosinophils % Not Reportable Cancelled Basophils % Not Reportable Cancelled Absolute Neutrophils Not Reportable Cancelled Absolute Lymphocytes Not Reportable Cancelled Absolute Monocytes Not Reportable Cancelled Absolute Eosinophils Not Reportable Cancelled Absolute Basophils Not Reportable Cancelled Sodium 139.3 Potassium 6.6 H* Chloride 107 Carbon Dioxide 20 L Anion Gap 12 BUN 52 H Creatinine 2.18 H Est GFR ( Amer) 35 L Est GFR (Non-Af Amer) 29 L Glucose 93 Calcium 8.2 L Total Bilirubin 0.4 AST 35 ALT 19 L Alkaline Phosphatase 116 Total Protein 5.7 L Albumin 2.7 L 07/29/18 07/29/18 22:39 22:39 Creatine Kinase 23 L CK-MB (CK-2) 1.88 Troponin I 0.093 NT-Pro-B Natriuret Pep 9150 H Impressions: Chest X-Ray 07/29/18 22:15 IMPRESSION: Interstitial edema. Tiny effusions and/or pleural thickening. Right perihilar airspace opacity may reflect a component of alveolar edema or pneumonitis copyright 2011 [employer]- All Rights Reserved Assessment & Plan - Diagnosis (1) Septic shock Is this a current diagnosis for this admission?: Yes Plan: prognosis is very poor ,not a candidate for intubation with mechanical ventilation (2) Acute kidney failure Qualifiers: Acute renal failure type: with acute tubular necrosis Qualified Code(s): N17.0 - Acute kidney failure with tubular necrosis Is this a current diagnosis for this admission?: Yes (3) Anuria Is this a current diagnosis for this admission?: Yes Plan: not a candidate for hemodialysis (4) Hyperkalemia Is this a current diagnosis for this admission?: Yes (5) Community acquired pneumonia Qualifiers: Laterality: right Lung location: middle lobe of lung Qualified Code(s): J18.1 - Lobar pneumonia, unspecified organism Is this a current diagnosis for this admission?: Yes
[2018-08-02] MEDS: DOPAMINE HCL/DEXTROSE 5%-WATER 800 MG/250 ML RTUINJ IV PRN (22:49)
[2018-08-03] MEDS ORDERED: EPINEPHRINE INJ 1 MG/10 ML DISP.SYRIN ONE (02:00)
[2018-08-03 07:44] VITALS: BP 41/26
--- NOTE | 2018-08-03 07:51 | Death Summary ---
Summary Date : 08/03/18 Time of :: 05:13 Autopsy: No Resuscitation Status: Do Not Intubate - Final Diagnosis (1) Acute respiratory failure with hypercapnia Is this a current diagnosis for this admission?: Yes (2) Community acquired pneumonia Is this a current diagnosis for this admission?: Yes (3) Senile dementia of Alzheimer's type Is this a current diagnosis for this admission?: Yes (4) Hypothyroid Is this a current diagnosis for this admission?: Yes (5) Osteoarthritis involving multiple joints on both sides of body Is this a current diagnosis for this admission?: Yes Hospital Course:: Patient was treated with antibiotic for presumed community acquired pneumonia. Blood culture was no growth at the time of . Sputum collection for culture was not possible due to patient's advanced dementia. Family resend hospice status at the time of hospitalization and patient was managed with supportive supplemental oxygen via nasal cannula. Nursing staff noted bradycardia at about 0507 and code was initiated. Patient was pronounced at 0573.
== END 2018-08-03 06:35 | disposition expired | DRG 189 ==
LOC: ER 21:53 → UNDOADMIN 07-30 01:47 → EH 07-30 01:47 → 5 07-30 18:30 → EH 08-01 01:47 → 3W 08-01 16:25 → 5 08-01 16:25
PROVIDERS: ADMIT Internal Medicine Geriatric Medicine; ATTEND Internal Medicine Geriatric Medicine
DX: J96.02 Acute respiratory failure with hypercapnia (principal); J18.1 Lobar pneumonia, unspecified organism; A41.9 Sepsis, unspecified organism; R65.21 Severe sepsis with septic shock; N17.0 Acute kidney failure with tubular necrosis; G30.9 Alzheimer's disease, unspecified; F02.80 Dementia in other diseases classified elsewhere, unspecified severity, without behavioral disturbance, psychotic disturbance, mood disturbance, and anxiety; E87.5 Hyperkalemia; R34 Anuria and oliguria; Z66 Do not resuscitate; D64.9 Anemia, unspecified; N40.0 Benign prostatic hyperplasia without lower urinary tract symptoms; I10 Essential (primary) hypertension; E78.5 Hyperlipidemia, unspecified; E03.9 Hypothyroidism, unspecified; M19.91 Primary osteoarthritis, unspecified site; Z79.82 Long term (current) use of aspirin; Z87.891 Personal history of nicotine dependence; Z79.899 Other long term (current) drug therapy
CPT/HCPCS: 36415; 36600; 71045; 80053; 82550; 82553; 82803; 83605; 83880; 84484; 85025; 85610; 85730; 87040; 93005; 93010; 96365; 96367; 99291; 99292; C1758; J0171; J0610; J0692; J1265; J1650; J1815; J1940; J1956; J3370; J3490; J7030; J7040